=== PATIENT | female | born 1985 | race Caucasian/White ===

== ENCOUNTER 2016-04-11 17:43 | Outpatient (CLI) | payer MEDICAID ==
[2016-04-11 18:14] LABS: APPEARANCE,URINE CLEAR; BILIRUBIN,URINE NEGATIVE (NEGATIVE); GLUCOSE, URINE NEGATIVE (NEGATIVE); KETONES,URINE NEGATIVE (NEGATIVE); LEUKOCYTE ESTERASE,URINE NEGATIVE (NEGATIVE); NITRITE,URINE NEGATIVE (NEGATIVE); PROTEIN,URINE NEGATIVE (NEGATIVE); URINE SPECIFIC GRAVITY 1.016; UROBILINOGEN,URINE NEGATIVE mg/dL (<2.0)
[2016-04-11 18:29] LABS: URINE METHADONE SCREEN NEGATIVE; URINE PHENCYCLIDINE SCREEN NEGATIVE
[2016-04-11 18:32] LABS: URINE BARBITURATES SCREEN UNCONFIRMED POSITIVE
--- NOTE | 2016-04-11 19:04 | Non Stress Test Report ---
Non Stress Test Datetime Report Generated by CPN: 04/11/2016 19:03 DEMOGRAPHIC EGA NST: 32.0 INDICATION Indication for Study: Chronic Hypertension Indication for Study (NST) Other: labor check- uc's _ lost mucus plug MONITORING Monitor Explained: Monitor Explained; Test Explained; Patient Verbalized Understanding Time on Monitor: 04/11/2016 18:12 Time off Monitor: 04/11/2016 18:50 NST Duration: 38 NST INTERVENTIONS NST Interventions: PO Hydration; Reposition Patient Physician Notified NST: Dr. Marty BABY A: [id number] BABY A Movement : Present Contraction Frequency : 2-4 FHR Baseline : 130 Accelerations : 15X15 Decelerations : None Variability : Moderate 6-25bpm NST Review: Meets Criteria for Reactive NST NST Review and Verified By : Ramonita Crenshaw RN NST Results: Reactive NST REPORT Report Trigger: Send Report
--- NOTE | 2016-04-12 04:45 | L&D General Admission ---
General Admit Datetime Report Generated by CPN: 04/12/2016 04:45 INFORMATION Patient Age: 30 (03/15/2016 14:05:QS system process) EDC: 06/06/2016 00:00 (04/11/2016 17:58:Yasmin Swanson RN) : 4 (04/11/2016 17:58:Yasmin Swanson RN) Para: 4 (04/11/2016 18:35:Yasmin Swanson RN) Para: 3 (03/15/2016 16:30:Yasmin Swanson RN) Term: 2 (04/11/2016 17:58:Yasmin Swanson RN) : 1 (04/11/2016 17:58:Yasmin Swanson RN) Spontaneous Abortions: 0 (04/11/2016 17:58:Yasmin Swanson RN) Induced Abortions: 0 (04/11/2016 17:58:Yasmin Swanson RN) Livin (04/11/2016 17:58:Yasmin Swanson RN) Cesareans: 0 (04/11/2016 17:58:Yasmin Swanson RN) VBACs: 0 (04/11/2016 17:58:Yasmin Swanson RN) Ectopic: 0 (04/11/2016 17:58:Yasmin Swanson RN) Multiple Births: 0 (04/11/2016 17:58:Yasmin Swanson RN) Baby, Number in Womb: 1 (04/11/2016 18:35:Yasmin Swanson RN) Baby, Number in Womb: 1 (03/15/2016 16:30:Yasmin Swanson RN) CARE [facility] (04/11/2016 17:58:Yasmin Swanson RN) Adequate Care: Yes (04/11/2016 17:58:Yasmin Swanson RN) Height (in): 63 (04/11/2016 19:04:QS system process) Height (in): 63 (04/11/2016 18:05:QS system process) ALLERGIES Medication Allergy: Yes (04/11/2016 17:58:Yasmin Swanson RN) Medication Allergies: Penicillins/Anaphylaxis (11/01/2015); amoxicillin/SV/Anaphylaxis (11/01/2015) (03/15/2016 14:05:QS system process) COMMUNICATION Primary Language: Thai (04/11/2016 17:58:Yasmin Swanson RN) Medical Tx Preferred Language: Thai (04/11/2016 17:58:Yasmin Swanson RN) Communication Barrier(s): None (04/11/2016 17:58:Yasmin Swanson RN) DEMOGRAPHICS Address: [address] [place] [id number] (03/15/2016 14:05:QS system process) Zipcode: [address] (03/15/2016 14:05:QS system process) Home (03/15/2016 14:05:QS system process) SSN: [id number] (03/15/2016 14:05:QS system process) Next of Kin Name: JAMES CHUN (03/15/2016 14:05:QS system process) Next of Kin (03/15/2016 14:05:QS system process) Next of Kin Relationship: SPO (03/15/2016 14:05:QS system process) Date of : 1985 (03/15/2016 14:05:QS system process) Marital Status: (03/15/2016 14:05:QS system process) Sex: Female (03/15/2016 14:05:QS system process) Race: (03/15/2016 14:05:QS system process) Ethnicity: Non- or (03/15/2016 14:05:QS system process) Jew: Faith (03/15/2016 14:05:QS system process) LABS Hemoglobin: 12.4 (03/15/2016 15:13:QS system process) Hematocrit: 36.5 (03/15/2016 15:13:QS system process) MCV: 88 (03/15/2016 15:13:QS system process)
--- NOTE | 2016-04-12 04:45 | L&D Current Admission ---
Current Admit Datetime Report Generated by CPN: 04/12/2016 04:45 ADMISSION INFORMATION Chief Complaint: Contractions (Annotations: lost her mucus plug) (04/11/2016 18:11:Yasmin Swanson RN) Chief Complaint: Epigastric Pain; Headache; Visual Disturbances; Dizziness; Shortness of Breath (03/15/2016 14:50:Yasmin Swanson RN)
--- NOTE | 2016-04-12 04:45 | L&D Discharge Summary ---
OB Discharge Summary Datetime Report Generated by CPN: 04/12/2016 04:45 DISCHARGE DIAGNOSIS Diagnosis/Symptoms: False Labor; Chronic Hypertension Diagnoses/Symptoms Other: chtn; not in labor Gestation: 32.0 Number of Babies in Womb: 1 Parity: 4 DIET/ACTIVITY/RESTRICTIONS Diet: Regular Activity: Normal Activity TEACHING/INSTRUCTIONS/REFERRALS Instructions Understood: Patient Verbalized Understanding Referrals: None Educational Materials- Other: PTL _ KICK COUNTS CARE NOTES GIVEN TO PT- QUESTIONS ANSWERED. DISCHARGE INFORMATION Discharged AMA: No Discharge Date/Time: 04/11/2016 18:56 Discharged To: Home Discharge Provider Name: DR ABRAHAM Accompanied By: FOB Discharge Method: Ambulatory Condition: Stable FOLLOW UP INFORMATION Follow Up With: [facility] Follow Up On: As Scheduled Follow Up Phone Number: [facility] - Comments: PT INSTRUCTED TO KEEP APPT TOMORROW; TURN IN 24 HR URINE ON MONDAY. CLARITIN HBP FOR SINUS CONGESTION- PT VERBALIZES UNDERSTANDING.
--- NOTE | 2016-04-12 04:45 | Antepartum Discharge Summary ---
Antepartum DC Datetime Report Generated by CPN: 04/12/2016 04:45 DIET/ACTIVITY/RESTRICTIONS Diet: Regular (04/11/2016 18:35:Yasmin Swanson, RN) Activity: Normal Activity (04/11/2016 18:35:Yasmin Swanson, RN) TEACHING/INSTRUCTIONS/REFERRALS Instructions Understood: Patient Verbalized Understanding (04/11/2016 18:35:Yasmin Swanson, RN) Referrals: None (04/11/2016 18:35:Yasmin Swanson RN) Educational Materials- Other: PTL _ KICK COUNTS CARE NOTES GIVEN TO PT- QUESTIONS ANSWERED. (04/11/2016 18:35:Yasmin Swanson RN) DISCHARGE INFORMATION Discharged AMA: No (04/11/2016 18:35:Yasmin Swanson RN) Discharge Date/Time: 04/11/2016 18:56 (04/11/2016 18:35:Yasmni Swanson RN) Discharged To: Home (04/11/2016 18:35:Yasmin Swanson RN) Discharge Provider Name: DR ABRAHAM (04/11/2016 18:35:Yasmin Swanson RN) Accompanied By: BALA (04/11/2016 18:35:Yasmin Swanson RN) Discharge Method: Ambulatory (04/11/2016 18:35:Yasmin Swanson RN) Condition: Stable (04/11/2016 18:35:Yasmin Swanson RN) FOLLOW UP INFORMATION Follow Up With: [facility] (04/11/2016 18:35:Yasmin Swanson RN) Follow Up On: As Scheduled (04/11/2016 18:35:Yasmin Swanson RN) Follow Up Phone Number: [facility] - (04/11/2016 18:35:Yasmin Swanson RN)
--- NOTE | 2016-04-12 04:45 | L&D Admission Assessment ---
LD ADM ASMT Datetime Report Generated by CPN: 04/12/2016 04:45 PATIENT ASSESSMENT Assessment Type: Triage (04/11/2016 18:11:Yasmin Swanson, RN) WEIGHT Weight (lb): 227 (04/11/2016 19:04:QS system process) Weight (lb): 227 (04/11/2016 18:05:QS system process) Weight (kg): 103.2 (04/11/2016 19:04:QS system process) Weight (kg): 103.2 (04/11/2016 18:05:QS system process) BMI: 40.2 (04/11/2016 19:04:QS system process) PAIN Pain Scale: 2 (04/11/2016 18:50:Yasmin Swanson RN) Pain Scale: 3 (04/11/2016 18:11:Yasmin Swanson RN) Pain Presence: Intermittent (04/11/2016 18:50:Yasmin Swanson RN) Pain Presence: Intermittent (04/11/2016 18:11:Yasmin Swanson RN) Pain Type: Cramping (04/11/2016 18:50:Yasmin Swanson RN) Pain Type: Cramping; Pressure (04/11/2016 18:11:Yasmin Swanson RN) Pain Location: Abdomen; Back (04/11/2016 18:50:Yasmin Swanson RN) Pain Location: Abdomen; Back (04/11/2016 18:11:Yasmin Swanson RN) Pain Goal: 1 (04/11/2016 18:11:Yasmin Swanson RN) Pain Related to Contraction: Yes (04/11/2016 18:11:Yasmin Swanson RN) CONTRACTIONS Frequency (min): irreg (04/11/2016 18:50:Yasmin Swanson RN) Duration (sec): 40-60 (04/11/2016 18:50:Yasmin Swanson RN) Quality: Mild (04/11/2016 18:50:Yasmin Swanson RN) Resting Tone [place]: Relaxed (04/11/2016 18:50:Yasmin Swanson RN) Resting Tone [place]: Relaxed (04/11/2016 18:11:Yasmin Swanson RN) VAGINAL EXAM Dilatation (cm): 0.0 (04/11/2016 18:50:Yasmin Swanson RN) Effacement (%): 0 (04/11/2016 18:50:Yasmin Swanson RN) Station: -4 (04/11/2016 18:50:Yasmin Swanson RN) Membranes Status: Intact (04/11/2016 18:50:Yasmin Swanson RN) Membranes Status: Intact (04/11/2016 18:11:Yasmin Swanson RN) NEURO Level of Consciousness: Fully Conscious (04/11/2016 18:11:Yasmin Swanson RN) DTR's/Clonus: DTRs 1+ (04/11/2016 18:11:Yasmin Swanson RN) Headache: Denies (04/11/2016 18:11:Yasmin Swanson RN) Dizziness: No (04/11/2016 18:11:Yasmin Swanson RN) Blurred Vision: No (04/11/2016 18:11:Yasmin Swanson RN) Extremity Numbness/Tingling : None (04/11/2016 18:11:Yasmin Swanson RN) Extremity Movement: Full Range of Motion (04/11/2016 18:11:Yasmin Swanson RN) CARDIOVASCULAR Nailbeds: [place] (04/11/2016 18:11:Yasmin Swanson RN) Capillary Refill: Less than 3 Seconds (04/11/2016 18:11:Yasmin Swanson RN) Lower Extremities Edema: None (04/11/2016 18:11:Yasmin Swanson RN) Lower Extremities Edema Degree: None (04/11/2016 18:11:Yasmin Swanson RN) Upper Extremities Edema: None (04/11/2016 18:11:Yasmin Swanson RN) Upper Extremities Edema Degree: None (04/11/2016 18:11:Yasmin Swanson RN) Facial Edema: None (04/11/2016 18:11:Yasmin Swanson RN) RESPIRATORY Respiratory Effort: Unlabored; Regular Rhythm; Equal Expansion (04/11/2016 18:11:Yasmin Swanson RN) Cough Productivity: None (04/11/2016 18:11:Yasmin Swanson RN) GASTROINTESTINAL Nausea/Vomiting: Denies (04/11/2016 18:11:Yasmin Swanson RN) RUQ Epigastric Pain: Denies (04/11/2016 18:11:Yasmin Swanson RN) Bowel Patterns: Soft, Formed Stool (04/11/2016 18:11:Yasmin Swanson RN) Hemorrhoids: Present (04/11/2016 18:11:Yasmin Swanson RN) Diet Type: Regular diet (04/11/2016 18:11:Yasmin Swanson RN) Last Meal: 04/11/2016 11:30 (04/11/2016 18:11:Yasmin Swanson RN) GENITOURINARY Bladder: Nondistended (04/11/2016 18:11:Yasmin Swanson RN) Frequency of Urination: No (04/11/2016 18:11:Yasmin Swanson RN) Urination Burning: No (04/11/2016 18:11:Yasmin Swanson RN) Vaginal Bleeding: None (04/11/2016 18:11:Yasmin Swanson RN) Vaginal Discharge Amount: None (04/11/2016 18:11:Yasmin Swanson RN) Vaginal Discharge Color: N/A (04/11/2016 18:11:Yasmin Swanson RN) Vaginal Discharge Character: None (Annotations: mucus plug) (04/11/2016 18:11:Yasmin Swanson RN) INTEGUMENTARY Skin Color: Normal for Race (04/11/2016 18:11:Yasmin Swanson RN) Skin Temperature: Warm (04/11/2016 18:11:Yasmin Swanson RN) Skin Moisture: Dry (04/11/2016 18:11:Yasmin Swanson RN) GABRIELE SKIN ASSESSMENT [place] Scale Sensory Perception: No Impairment- Responds to verbal commands. Has no sensory deficit which would limit ability to feel or voice pain or discomfort (04/11/2016 18:11:Yasmin Swanson RN) [place] Scale Moisture: Rarely Moist- Skin is usually dry. Linen only requires changing at routine intervals (04/11/2016 18:11:Yasmin Swanson RN) [place] Scale Activity: Walks Frequently- Walks outside the room at least twice a day and inside room at least every 2 hours during the day. (04/11/2016 18:11:Yasmin Swanson RN) [place] Scale Mobility: No Limitations- Makes major and frequent changes in position without assistance (04/11/2016 18:11:Yasmin Swanson RN) [place] Scale Nutrition: Excellent- Eats most of every meal. Never refuses a meal. Usually eats a total of 4 or more servings of meat and dairy products. Occasionally eats between meals. Does not require supplementation (04/11/2016 18:11:Yasmin Swanson RN) [place] Scale Friction and Shear: No Apparent Problem- Moves in bed and in chair independently and has sufficient muscle strength to lift up completely during move. Maintains good position in bed or chair at all times (04/11/2016 18:11:Yasmin Swanson RN) [place] Scale Total: 23 (04/11/2016 18:11:QS system process) [place] Scale Risk: No Risk of Pressure Ulcer Noted at this Time (04/11/2016 18:11:QS system process) SUPPORT Family Support: Significant Other supportive, at bedside frequently (04/11/2016 18:11:Yasmin Swanson RN) Emotional State: Calm/Relaxed (04/11/2016 18:11:Yasmin Swanson RN) SAFETY Call [place] Within Reach: Yes (04/11/2016 18:11:Yasmin Swanson RN) Side Rails Up: Yes (04/11/2016 18:11:Yasmin Swanson RN) Bed Wheels Locked: Yes (04/11/2016 18:11:Yasmin Swansno RN) Arm Bands Present: Yes (04/11/2016 18:11:Yasmin Swanson RN) Isolation: [place] (04/11/2016 18:11:Yasmin Swanson RN) FALL SCREEN Fall Risk History of Falling: (0) No (04/11/2016 18:11:Yasmin Swanson RN) Fall Risk Secondary Diagnosis: (0) No (04/11/2016 18:11:Yasmin Swanson RN) Fall Risk Ambulatory Aid: (0) None/Bedrest/Wheelchair/Nurse Assist (04/11/2016 18:11:Yasmin Swanson RN) Fall Risk IV Therapy: (0) No (04/11/2016 18:11:Yasmin Swanson RN) Fall Risk Gait: (0) Normal/Bedrest/Immobile (04/11/2016 18:11:Yasmin Swanson RN) Fall Risk Mental Status: (0) Oriented to Own Ability (04/11/2016 18:11:Yasmin Swanson RN) Fall Risk Score: 0 (04/11/2016 18:11:QS system process) Fall Risk Score Definition: No Risk: No action required (04/11/2016 18:11:QS system process) RECENT TRAVEL/INFECTIOUS DISEASE Recent Exp Communicable Disease: No (04/11/2016 18:11:Yasmin Swanson RN) Cough or Fever: No (04/11/2016 18:11:Yasmin Swanson RN) Foreign Travel Past 10 Days: No (04/11/2016 18:11:Yasmin Swanson RN) Open Wounds or Sores: No (04/11/2016 18:11:Yasmin Swanson RN) Prior Antibiotic Resistance Tx: No (04/11/2016 18:11:Yasmin Swanson RN) Cultures Obtained: Not Applicable (04/11/2016 18:11:Yasmin Swanson RN) Isolation Initiated: No (04/11/2016 18:11:Yasmin Swanson RN) Pt/Family Education: Not Applicable (04/11/2016 18:11:Yasmin Swanson RN) BABY A FHR Baseline Rate (bpm) Baby A: 135 (04/11/2016 18:50:Yasmin Swanson RN) FHR Baseline Rate (bpm) Baby A: 145 (04/11/2016 18:11:Yasmin Swanson RN) Variability Baby A: Moderate 6-25 bpm (04/11/2016 18:50:Yasmin Swanson RN) Accelerations Baby A: 15X15 (04/11/2016 18:50:Yasmin Swanson RN) Decelerations Baby A: None (04/11/2016 18:50:Yasmin Swanson RN)
--- NOTE | 2016-04-12 04:45 | L&D Flow Sheet ---
LD Flowsheet Datetime Report Generated by CPN: 04/12/2016 04:45 Datetime: 04/11/2016 18:50 Vital Signs Stage of : OB Triage (Yasmin Lisha Swanson, RN) Respirations: 16 (Yasmin Lishajacinta Wallisnd, RN) Uterine Activity Monitor Mode: External (Yasmin Swanson, RN) Monitor Interventions for UA: [place] Adjusted (Yasmin Swanson, RN) Frequency (min): irreg (Yasmin Swanson, RN) Quality: Mild (Yasmin Swanson, RN) Duration (sec): 40-60 (Yasmin Swanson, RN) Resting Tone (Palpate): Relaxed (Yasmin Swanson, RN) Assessment A Monitor Mode: External US (Yasmin Swanson, RN) Monitor Interventions for FHR: Ultrasound Adjusted (Yasmin Swanson, RN) FHR Baseline Rate : 135 (Yasmin Swanson, RN) FHR Baseline Changes: No Baseline Change (Yasmin Swanson, RN) Variability: Moderate 6-25 bpm (Yasmin Husain Roulund, RN) Accelerations: 15X15 (Yasmin Dixonlund, RN) Decelerations: None (Yasmin Swanson, RN) Pain Pain Scale: 2 (Yasmin Swanson RN) Pain Presence: Intermittent (Yasmin Swanson RN) Pain Type: Cramping (Yasmin Swanson RN) Pain Location: Abdomen; Back (Yasmin Swanson RN) Pain Relief Measures: Comfort Measures (Yasmin Swanson RN) Pain Coping: Talking Through Contractions (Yasmin Swanson RN) Vaginal Exam Dilatation (cm): 0.0 (Yasmin Swanson RN) Effacement (%): 0 (Yasmin Swanson RN) Station: -4 (Yasmin Swanson RN) Exam by: ELEANOR SWANSON RN (Yasmin Swanson, RONI) Membrane Status: Intact (Yasmin Swanson RN) Vaginal Bleeding: None (Yasmin Swanson RN) Cervix, Consistency: Soft (Yasmin Swanson RN) Cervix, Position: Posterior (Yasmin Swanson RN) Procedures: Sterile [place]culum Exam (Yasmin Swanson, RONI) Patient Position/Activity: Left Tilt; Semi-Fowlers (Yasmin Swanson, RONI) Comfort Measures: Family Support (Yasmin Swanson RN) I/O Interventions: Up to BR (Yasmin Swanson RN) Teaching Instructional Method: Verbal; Written; Patient Instructed; Family/Support Person Instructed; Verbalized Understanding (Yasmin Swanson RN) Plan of Care: Labor (Yasmin Swanson RN) Pain Management: Comfort Measures (Yasmin Swanson RN) PTL/PROM: Hydration (Yasmin Swanson RN) Related: Common Discomforts of ; Maternal Physical Changes; Maternal Emotional Changes; Nutrition; Hydration; Activity and Rest (Yasmin Swanson RN) Communication Communication: RN at Bedside; RN Reviewed Strip; Provider Orders Received; Report Given to @ DR ABRAHAM @ [id number] (Yasmin Swanson RN) Notification Reason: Status Update; Status; Labor Status; Uterine Activity; Pain (Yasmin Swanson RN) Communication Comments: D/C ORDERS IF NEG SVE; D/C AMBULATORY IN STABLE CONDITION W/O C/O ACCOMPANIED BY FOB. (Yasmin Swanson RN) LaborFlag: OB Triage (QS system process) Datetime: 04/11/2016 18:43 NBP Sys/[place]/Mean (mmHg): 136 (QS system process) : 84 (QS system process) : 104 (QS system process) Pulse: 100 (QS system process) LaborFlag: OB Triage (QS system process) Datetime: 04/11/2016 18:28 NBP Sys/[place]/Mean (mmHg): 132 (QS system process) : 79 (QS system process) : 101 (QS system process) Pulse: 96 (QS system process) LaborFlag: OB Triage (QS system process) Datetime: 04/11/2016 18:11 Vital Signs Stage of : OB Triage (Yasmin Castañedajacinta Swanson, RN) NBP Sys/[place]/Mean (mmHg): 157 (QS system process) : 92 (QS system process) : 115 (QS system process) Pulse: 107 (QS system process) Uterine Activity Monitor Mode: External (Yasmin Lisha Swanson, RN) Monitor Interventions for UA: [place] Adjusted (Yasmin Castañedajacinta Wallisnd, RN) Resting Tone (Palpate): Relaxed (Yasmin Husain Roulund, RN) Assessment A Monitor Mode: External US (Yasmin Swanson, RONI) Monitor Interventions for FHR: Ultrasound Adjusted (Yasmin Swanson, RN) FHR Baseline Rate : 145 (Yasmin Wallisgina, RN) Pain Pain Scale: 3 (Yasmin Swanson RN) Pain Presence: Intermittent (Yasmin Swanson RN) Pain Type: Cramping; Pressure (Yasmin Swanson, RONI) Pain Location: Abdomen; Back (Yasmin Swanson, RONI) Pain Goal: 1 (Yasmin Swanson RN) Pain Relief Measures: Comfort Measures (Yasmin Swanson RN) Pain Coping: Talking Through Contractions (Yasmin Swanson, RONI) Membrane Status: Intact (Yasmin Swanson, RONI) Vaginal Bleeding: None (Yasmin Swanson, RONI) Maternal Assessment Level of Consciousness: Fully Conscious (Yasmin Swanson RN) DTR's/Clonus: DTRs 1+ (Yasmin Swanson RN) Headache: Denies (Yasmin Swanson RN) Nausea/Vomiting: Denies (Yasmin Swanson RN) RUQ Epigastric Pain: Denies (Yasmin Swanson RN) Patient Care Oxygen Method: Room Air (Yasmin Swanson RN) Patient Position/Activity: Left Tilt; Semi-Fowlers (Yasmin Swanson RN) Comfort Measures: Family Support (Yasmin Swanson RN) I/O Interventions: Popsicle; Clear Liquids Given; Up to BR (Yasmin Swanson RN) Teaching Instructional Method: Verbal; Patient Instructed; Family/Support Person Instructed; Verbalized Understanding (Yasmin Swanson RN) Plan of Care: Plan of Care Discussed (Yasmin Swanson RN) Unit Routine: [place] to Room; Call [place]; Bed; Phone/Cell Phone Use; Unit Personnel; Handwashing; Monitoring; Safety/Fall Risk Prevention; Diet/Nutrition Services; Bathroom Privileges (Yasmin Swanson RN) Pain Management: Pain Scale/Goals; Comfort Measures (Yasmin Swanson RN) Related: Common Discomforts of ; Maternal Physical Changes; Maternal Emotional Changes; Nutrition; Hydration; Activity and Rest (Yasmin Swanson RN) Communication Communication: RN at Bedside; RN Reviewed Strip (Yasmin Swanson RN) LaborFlag: OB Triage (QS system process)
== END 2016-04-11 18:56 | disposition home or self-care (01) ==
LOC: LC 17:43
PROVIDERS: ATTEND Obstetrics & Gynecology
PROC: 4A1HXCZ Monitoring of Products of Conception, Cardiac Rate, External Approach (ICD-10-PCS; principal; 2016-04-11)
DX: O10.913 Unspecified pre-existing hypertension complicating pregnancy, third trimester (principal); Z3A.32 32 weeks gestation of pregnancy
CPT/HCPCS: 59025; 80307; 81001

== ENCOUNTER 2016-05-05 01:11 | Outpatient (CLI) | payer MEDICAID ==
[2016-05-05 01:51] LABS: APPEARANCE,URINE SLIGHTLY-CLOUDY; BILIRUBIN,URINE NEGATIVE (NEGATIVE); GLUCOSE, URINE NEGATIVE (NEGATIVE); KETONES,URINE NEGATIVE (NEGATIVE); LEUKOCYTE ESTERASE,URINE NEGATIVE (NEGATIVE); NITRITE,URINE NEGATIVE (NEGATIVE); PROTEIN,URINE NEGATIVE (NEGATIVE); URINE SPECIFIC GRAVITY 1.008; UROBILINOGEN,URINE NEGATIVE mg/dL (<2.0)
[2016-05-05 01:53] LABS: AMNISURE (ROM) NEGATIVE (NEGATIVE)
[2016-05-05 02:18] LABS: URINE METHADONE SCREEN NEGATIVE; URINE OPIATES LOW NEGATIVE; URINE PHENCYCLIDINE SCREEN NEGATIVE
[2016-05-05 02:22] LABS: URINE BARBITURATES SCREEN UNCONFIRMED POSITIVE
[2016-05-05] MEDS ORDERED: HYDROXYZINE PAMOATE 50 MG CAPSULE ONE (03:25)
--- NOTE | 2016-05-05 03:46 | Non Stress Test Report ---
Non Stress Test Datetime Report Generated by CPN: 05/05/2016 03:46 DEMOGRAPHIC EGA NST: 35.3 INDICATION Indication for Study: Ordered by Provider; Other Indication for Study (NST) Other: LC URINE RESULTS Urine Protein, NST: Negative Urine Ketones - NST: Negative Urine Glucose - NST: Negative Urine Blood - NST: Negative MONITORING Monitor Explained: Monitor Explained; Test Explained; Patient Verbalized Understanding Time on Monitor: 05/05/2016 01:30 Time off Monitor: 05/05/2016 02:44 NST Duration: 74 NST INTERVENTIONS Physician Notified NST: Dr Ferguson BABY A: [id number] BABY A Movement : Present Contraction Frequency : 2-10 FHR Baseline : 135 Accelerations : 15X15 Decelerations : None Variability : Moderate 6-25bpm NST Review: Meets Criteria for Reactive NST NST Review and Verified By : R Luis, RNC NST Results: Reactive NST COMMENTS NST Comments: see flowsheet for urine results and VS NST REPORT Report Trigger: Send Report
--- NOTE | 2016-05-05 04:46 | L&D Admission Assessment ---
LD ADM ASMT Datetime Report Generated by CPN: 05/05/2016 04:45 PATIENT ASSESSMENT Assessment Type: Triage (05/05/2016 01:30:Wilda Scott, RN) WEIGHT Weight (lb): 229 (05/05/2016 01:52:QS system process) Weight (kg): 104.1 (05/05/2016 01:52:QS system process) BMI: 40.6 (05/05/2016 01:52:QS system process) PAIN Pain Scale: 4 (05/05/2016 01:30:Wilda Scott, RN) Pain Presence: Intermittent (05/05/2016 01:30:Wilda Scott, RN) Pain Type: Contraction (05/05/2016 01:30:Wilda Scott, RN) Pain Location: Abdomen; Back (05/05/2016 01:30:Wilda Scott, RN) Pain Goal: 2 (05/05/2016 01:30:Wilda Scott, RN) Pain Related to Contraction: Yes (05/05/2016 01:30:Wilda Scott, RN) CONTRACTIONS Frequency (min): 2-6 (05/05/2016 02:30:Wilda Scott, RN) Frequency (min): 4-10 (05/05/2016 02:00:Wilda Scott, RN) Frequency (min): Q6 per pt (05/05/2016 01:30:Wilda Scott, RN) Duration (sec): 50-120 (05/05/2016 02:30:Wilda Scott, RN) Duration (sec): 60-150 (05/05/2016 02:00:Wilda Chavez RN) Quality: Mild (05/05/2016 02:30:Wilda Chavez RN) Quality: Mild (05/05/2016 02:00:Wilda Chavez RN) Resting Tone [place]: Relaxed (05/05/2016 02:30:Wilda Chavez RN) Resting Tone [place]: Relaxed (05/05/2016 02:00:Wilda Chavez RN) Contraction Comments: Unable to accurately assess (05/05/2016 02:44:Wilda Chavez RN) VAGINAL EXAM Dilatation (cm): 2.0 (05/05/2016 03:25:Wilda Chavez RN) Dilatation (cm): 2.0 (05/05/2016 01:30:Wilda Chavez RN) Effacement (%): 30 (05/05/2016 03:25:Wilda Chavez RN) Effacement (%): 30 (05/05/2016 01:30:Wilda Chavez RN) Station: -1 (05/05/2016 03:25:Wilda Chavez RN) Station: -2 (05/05/2016 01:30:Wilda Chavez RN) ROTH'S SCORE Roth's Score Dilatation (cm): 1-2 cm (05/05/2016 01:30:Wilda Chavez RN) Roth's Score Effacement (%): 0-30_ effaced (05/05/2016 01:30:Wilda Chavez RN) Roth's Score Station: minus 2 (05/05/2016 01:30:Wilda Chavez RN) Roth's Score Consistency: Medium (05/05/2016 01:30:Wilda Chavez RN) Roth's Score Position: Anterior (05/05/2016 01:30:Wilda Chavez RN) Total Roth's Score: 5 (05/05/2016 01:30:QS system process) Roth's Score Text: 5-8 = Small percentage of induction failure (05/05/2016 01:30:QS system process) NEURO Level of Consciousness: Fully Conscious (05/05/2016 01:30:Wilda Chavez RN) DTR's/Clonus: DTRs 2+; No Clonus (05/05/2016 01:30:Wilda Chavez RN) Headache: Generalized (05/05/2016 01:30:Wilda Chavez RN) Dizziness: No (05/05/2016 01:30:Wilda Chavez RN) Blurred Vision: No (Annotations: Hx of visual disturbance today, denies right now ) (05/05/2016 01:30:Wilda Chavez RN) Extremity Numbness/Tingling : None (05/05/2016 01:30:Wilda Chavez RN) Extremity Movement: Full Range of Motion (05/05/2016 01:30:Wilda Chavez RN) CARDIOVASCULAR Heart Rhythm: Irregular-Annotate (05/05/2016 01:30:Wilda Chavez RN) Nailbeds: [place] (05/05/2016 01:30:Wilda Chavez RN) Capillary Refill: Less than 3 Seconds (05/05/2016 01:30:Wilda Chavez RN) Lower Extremities Edema: None (05/05/2016 01:30:Wilda Chavez RN) Lower Extremities Edema Degree: None (05/05/2016 01:30:Wilda Chavez RN) Upper Extremities Edema: Bilateral Upper Extremities (05/05/2016 01:30:Wilda Chavez RN) Upper Extremities Edema Degree: 1+ (05/05/2016 01:30:Wilda Chavez RN) Facial Edema: None (05/05/2016 01:30:Wilda Chavez RN) Homa's Sign Left Leg: Negative (05/05/2016 01:30:Wilda Chavez RN) Homa's Sign Right Leg: Negative (05/05/2016 01:30:Wilda Chavez RN) DVT RISK ASSESSMENT DVT Risk Age: Age less than 41 years (05/05/2016 01:30:Wilda Chavez RN) DVT Risk BMI: BMI 41 to 50 (05/05/2016 01:30:Wilda Chavez RN) DVT Risk Surgery: None Applicable (05/05/2016 01:30:Wilda Chavez RN) DVT Risk Other: Women Only- or (<1 month) (05/05/2016 01:30:Wilda Chavez RN) DVT Risk Total: 3 (05/05/2016 01:30:QS system process) DVT Risk Text: High Risk (20-40%)- Consider stockings, compresssion device, pharmacological therapy per hospital policy (05/05/2016 01:30:QS system process) RESPIRATORY Respiratory Effort: Unlabored; Regular Rhythm; Equal Expansion (05/05/2016 01:30:Wilda Chavez RN) Breath Sounds, Left: Clear and Equal (05/05/2016 01:30:Wilda Chavez RN) Breath Sounds, Right: Clear and Equal (05/05/2016 01:30:Wilda Scott RN) Cough Productivity: None (05/05/2016 01:30:Wilda Scott, RN) GASTROINTESTINAL Nausea/Vomiting: Denies (05/05/2016 01:30:Wilda Chavez RN) Bowel Sounds: Normoactive; All Quadrants (05/05/2016 01:30:Wilda Scott, RN) RUQ Epigastric Pain: Denies (05/05/2016 01:30:Wilda Scott, RN) GENITOURINARY Bladder: Nondistended (05/05/2016 01:30:Wilda Chavez RN) Frequency of Urination: No (05/05/2016 01:30:Wilda Chavez RN) Urination Burning: No (05/05/2016 01:30:Wilda Chavez RN) CVA Tenderness: No (05/05/2016 01:30:Wilda Chavez RN) Vaginal Bleeding: None (05/05/2016 01:30:Wilda Chavez RN) Vaginal Discharge Amount: None (05/05/2016 01:30:Wilda Chavez RN) Vaginal Discharge Color: N/A (05/05/2016 01:30:Wilda Scott, RONI) INTEGUMENTARY Skin Color: Normal for Race (05/05/2016 01:30:Wilda Chavez RN) Skin Temperature: Warm (05/05/2016 01:30:Wilda Chavez RN) Skin Moisture: Dry (05/05/2016 01:30:Wilda Chavez RN) PUSHPA SKIN ASSESSMENT Pushpa Scale Sensory Perception: No Impairment- Responds to verbal commands. Has no sensory deficit which would limit ability to feel or voice pain or discomfort (05/05/2016 01:30:Wilda Chavez RN) Pushpa Scale Moisture: Rarely Moist- Skin is usually dry. Linen only requires changing at routine intervals (05/05/2016 01:30:Wilda Chavez RN) Pushpa Scale Activity: Walks Frequently- Walks outside the room at least twice a day and inside room at least every 2 hours during the day. (05/05/2016 01:30:Wilda Chavez RN) Pushpa Scale Mobility: No Limitations- Makes major and frequent changes in position without assistance (05/05/2016 01:30:Wilda Chavez RN) Pushpa Scale Nutrition: Excellent- Eats most of every meal. Never refuses a meal. Usually eats a total of 4 or more servings of meat and dairy products. Occasionally eats between meals. Does not require supplementation (05/05/2016 01:30:Wilda Chavez RN) Pushpa Scale Friction and Shear: No Apparent Problem- Moves in bed and in chair independently and has sufficient muscle strength to lift up completely during move. Maintains good position in bed or chair at all times (05/05/2016 01:30:Wilda Chavez RN) Pushpa Scale Total: 23 (05/05/2016 01:30:QS system process) Pushpa Scale Risk: No Risk of Pressure Ulcer Noted at this Time (05/05/2016 01:30:QS system process) SUPPORT Family Support: Significant Other supportive, at bedside frequently (05/05/2016 01:30:Wilda Chavez RN) SAFETY Call Giles Within Reach: Yes (05/05/2016 01:30:Wilda Chavez RN) Side Rails Up: Yes (05/05/2016 01:30:Wilda Chavez RN) Bed Wheels Locked: Yes (05/05/2016 01:30:Wilda Chavez RN) Arm Bands Present: Yes (05/05/2016 01:30:Wilda Chavez RN) FALL SCREEN Fall Risk History of Falling: (0) No (05/05/2016 01:30:Wilda Chavez RN) Fall Risk Secondary Diagnosis: (0) No (05/05/2016 01:30:Wilda Chavez RN) Fall Risk Ambulatory Aid: (0) None/Bedrest/Wheelchair/Nurse Assist (05/05/2016 01:30:Wilda Chavez RN) Fall Risk IV Therapy: (0) No (05/05/2016 01:30:Wilda Chavez RN) Fall Risk Gait: (0) Normal/Bedrest/Immobile (05/05/2016 01:30:Wilda Chavez RN) Fall Risk Mental Status: (0) Oriented to Own Ability (05/05/2016 01:30:Wilda Chavez RN) Fall Risk Score: 0 (05/05/2016 01:30:QS system process) Fall Risk Score Definition: No Risk: No action required (05/05/2016 01:30:QS system process) RECENT TRAVEL/INFECTIOUS DISEASE Recent Exp Communicable Disease: No (05/05/2016 01:30:Wilda Chavez RN) Cough or Fever: No (05/05/2016 01:30:Wilda Chavez RN) Foreign Travel Past 10 Days: No (05/05/2016 01:30:Wilda Chavez RN) Open Wounds or Sores: No (05/05/2016 01:30:Wilda Chavez RN) Prior Antibiotic Resistance Tx: No (05/05/2016 01:30:Wilda Chavez RN) Cultures Obtained: Not Applicable (05/05/2016 01:30:Wilda Chavez RN) Isolation Initiated: No (05/05/2016 01:30:Wilda Chavez RN) Pt/Family Education: Not Applicable (05/05/2016 01:30:Wilda Chavez RN) BABY A FHR Baseline Rate (bpm) Baby A: 135 (05/05/2016 02:44:Wilda Chavez RN) FHR Baseline Rate (bpm) Baby A: 130 (05/05/2016 02:30:Wilda Chavez RN) FHR Baseline Rate (bpm) Baby A: 135 (05/05/2016 02:00:Wilda Chavez RN) Variability Baby A: Moderate 6-25 bpm (05/05/2016 02:44:Wilda Chavez RN) Variability Baby A: Moderate 6-25 bpm (05/05/2016 02:30:Wilda Chavez RN) Variability Baby A: Moderate 6-25 bpm (05/05/2016 02:00:Wilda Chavez RN) Accelerations Baby A: 10X10 (05/05/2016 02:44:Wilda Chavez RN) Accelerations Baby A: 15X15 (05/05/2016 02:30:Wilda Chavez RN) Accelerations Baby A: 15X15 (05/05/2016 02:00:Wilda Chavez RN) Decelerations Baby A: None (05/05/2016 02:44:Wilda Chavez RN) Decelerations Baby A: None (05/05/2016 02:30:Wilda Chavez RN) Decelerations Baby A: None (05/05/2016 02:00:Wilda Chavez RN)
--- NOTE | 2016-05-05 04:46 | L&D Flow Sheet ---
LD Flowsheet Datetime Report Generated by CPN: 05/05/2016 04:45 Datetime: 05/05/2016 03:32 Additional Nursing Comments: Pt stable, ambulatory, discharged from unit. See delivery summary (Wilda Scott, RN) Datetime: 05/05/2016 03:31 Medications Medication Comments: vistaril 50 mg PO (Wilda Scott, RN) Teaching Instructional Method: Verbal; Written; Patient Instructed; Family/Support Person Instructed; Verbalized Understanding (Wilda Scott, RN) Teaching Comments: Term labor care notes discussed. No questions from pt or at this time (Wilda Scott, RN) Datetime: 05/05/2016 03:25 Vaginal Exam Dilatation (cm): 2.0 (Wilda Scott, RN) Effacement (%): 30 (Wilda Scott, RN) Station: -1 (Wilda Scott, RN) Exam by: K Scott RN (Wilda Scott, RN) Datetime: 05/05/2016 02:44 Contraction Comments: Unable to accurately assess (Wilda Scott, RN) Assessment A Monitor Mode: External US (Wilda Scott, RN) FHR Baseline Rate : 135 (Wilda Scott, RN) Variability: Moderate 6-25 bpm (Wilda Scott, RN) Accelerations: 10X10 (Wilda Scott, RN) Decelerations: None (Wilda Scott, RN) Comments: monitors discontinued for pt to ambulate unit for 30 minutes (Wilda Scott, RN) Datetime: 05/05/2016 02:37 Vital Signs NBP Sys/Maame/Mean (mmHg): 143 (QS system process) : 78 (QS system process) : 105 (QS system process) Pulse: 93 (QS system process) LaborFlag: OB Triage (QS system process) Datetime: 05/05/2016 02:30 Uterine Activity Monitor Mode: External; Palpation (Wilda Scott, RN) Frequency (min): 2-6 (Wilda Scott, RN) Quality: Mild (Wilda Scott, RN) Duration (sec): 50-120 (Wilda Scott, RN) Resting Tone (Palpate): Relaxed (Wilda Scott, RN) Assessment A Monitor Mode: External US (Wilda Scott, RN) FHR Baseline Rate : 130 (Wilda Scott, RN) Variability: Moderate 6-25 bpm (Wilda Scott, RN) Accelerations: 15X15 (Wilda Scott, RN) Decelerations: None (Wilda Scott, RN) Datetime: 05/05/2016 02:29 I/O Interventions: Up to BR (Wilda Scott, RN) Datetime: 05/05/2016 02:21 Vital Signs NBP Sys/Maame/Mean (mmHg): 138 (QS system process) : 75 (QS system process) : 102 (QS system process) Pulse: 99 (QS system process) LaborFlag: OB Triage (QS system process) Datetime: 05/05/2016 02:06 Vital Signs NBP Sys/Maame/Mean (mmHg): 132 (QS system process) : 79 (QS system process) : 102 (QS system process) Pulse: 88 (QS system process) LaborFlag: OB Triage (QS system process) Datetime: 05/05/2016 02:02 Communication Communication: Provider Orders Received; Report Given to @ Dr Ferguson (Wilda Chavez RN) Communication Comments: Call placed to Dr Ferguson, report given re: pt presence, hx, complaints, NST, negative amnisure and SVE. Plan to repeat SVE _0300. If SVE unchanged, may d/c pt to home with vistaril 50 mg PO (Wilda Chavez, RONI) Datetime: 05/05/2016 02:00 Uterine Activity Monitor Mode: External; Palpation (Wilda Chavez, RN) Frequency (min): 4-10 (Wilda Chavez RN) Quality: Mild (Wilda Chavez, RN) Duration (sec): 60-150 (Wilda Chavez RN) Resting Tone (Palpate): Relaxed (Wilda Chavez, RN) Assessment A Monitor Mode: External US (Wilda Scott, RN) FHR Baseline Rate : 135 (Wilda Scott, RN) Variability: Moderate 6-25 bpm (Wilda Scott, RN) Accelerations: 15X15 (Wilda Scott, RN) Decelerations: None (Wilda Scott, RN) Datetime: 05/05/2016 01:52 Vital Signs NBP Sys/Maame/Mean (mmHg): 136 (QS system process) : 89 (QS system process) : 107 (QS system process) Pulse: 97 (QS system process) LaborFlag: OB Triage (QS system process) Datetime: 05/05/2016 01:35 Vital Signs NBP Sys/Maame/Mean (mmHg): 149 (QS system process) : 88 (QS system process) : 113 (QS system process) Pulse: 95 (QS system process) Respirations: 17 (Wilda Chavez RN) Temperature (F): 97.8 (Wilda Chavez RN) Temperature (C): 36.6 (QS system process) Temperature Route: Oral (Wilda Chavez RN) LaborFlag: OB Triage (QS system process) Datetime: 05/05/2016 01:30 Frequency (min): Q6 per pt (Wilda Chavez, RONI) Pain Pain Scale: 4 (Wilda Chavez RN) Pain Presence: Intermittent (Wilda Chavez RN) Pain Type: Contraction (Wilda Chavez RN) Pain Location: Abdomen; Back (Wilda Chavez RN) Pain Goal: 2 (Wilda Chavez RN) Pain Relief Measures: Comfort Measures (Wilda Chavez RN) Pain Coping: Talking Through Contractions; Breathing Through Contractions (Wilda Chavez RN) Vaginal Exam Dilatation (cm): 2.0 (Wilda Chavez RN) Effacement (%): 30 (Wilda Chavez RN) Station: -2 (Wilda Chavez RN) Exam by: Ree Chavez RN (Wilda Chavez RN) Vaginal Bleeding: None (Wilda Chavez RN) Cervix, Consistency: Moderate (Wilda Chavez RN) Cervix, Position: Anterior (Wilda Scott, RN) Levi's Score Dilatation (cm): 1-2 cm (Wilda Scott, RN) Effacement: 0-30_ effaced (Wilda Scott, RN) Station: minus 2 (Wilda Scott, RN) Consistency: Medium (Wilda Scott, RN) Position: Anterior (Wilda Scott, RN) Total Levi's Score: 5 (QS system process) : 5-8 = Small percentage of induction failure (QS system process) Maternal Assessment Level of Consciousness: Fully Conscious (Wilda Scott, RN) DTR's/Clonus: DTRs 2+; No Clonus (Wilda Scott, RN) Headache: Generalized (Wilda Scott, RN) Breath Sounds, Left: Clear and Equal (Wilda Scott, RN) Breath Sounds, Right: Clear and Equal (Wilda Scott, RN) Nausea/Vomiting: Denies (Wilda Scott, RN) RUQ Epigastric Pain: Denies (Wilda Scott, RN) Patient Care Patient Position/Activity: Right Tilt (Wilda Chavez RN) Comfort Measures: Family Support (Wilda Chavez RN) I/O Interventions: Ice Chips Given; Popsicle; Clear Liquids Given (Wilda Chavez RN) Teaching Instructional Method: Verbal; Patient Instructed; Family/Support Person Instructed; Verbalized Understanding (Wilda Chavez RN) Plan of Care: Plan of Care Discussed (Wilda Chavez RN) Unit Routine: [place] to Room; Call Giles (Wilda Chavez RN) Labor/Induction: Labor Stages (Wilda Chavez RN) Pain Management: PRN Medications; Pain Scale/Goals; Comfort Measures (iWlda Chavez RN) LaborFlag: OB Triage (QS system process)
--- NOTE | 2016-05-05 04:46 | L&D Current Admission ---
Current Admit Datetime Report Generated by CPN: 05/05/2016 04:45 ADMISSION INFORMATION Chief Complaint: Contractions (05/05/2016 01:30:NANCY Araujo
--- NOTE | 2016-05-05 04:46 | L&D General Admission ---
General Admit Datetime Report Generated by CPN: 05/05/2016 04:45 INFORMATION Para: 3 (05/05/2016 03:32:Wilda Scott, RN) Baby, Number in Womb: 1 (05/05/2016 03:32:Wilda Scott, RN) CARE Height (in): 63 (05/05/2016 01:52:QS system process) ALLERGIES Medication Allergies: Penicillins/Anaphylaxis (05/05/2016); amoxicillin/SV/Anaphylaxis (05/05/2016) (05/05/2016 01:52:QS system process)
--- NOTE | 2016-05-05 04:46 | Antepartum Discharge Summary ---
Antepartum DC Datetime Report Generated by CPN: 05/05/2016 04:45 DIET/ACTIVITY/RESTRICTIONS Diet: Regular (05/05/2016 03:32:Wilda Scott, RN) Activity: Normal Activity (05/05/2016 03:32:Wilda Scott, RN) TEACHING/INSTRUCTIONS/REFERRALS Instructions Given To: pt, (05/05/2016 03:32:Wilda Scott, RN) Instructions Understood: Patient Verbalized Understanding; Support Person Verbalized Understanding (05/05/2016 03:32:Wilda Chavez RN) Educational Materials- Other: term labor care notes (05/05/2016 03:32:Wilda Chavez RN) DISCHARGE INFORMATION Discharged AMA: No (05/05/2016 03:32:Wilda Chavez RN) Discharge Date/Time: 05/05/2016 03:32 (05/05/2016 03:32:Wilda Chavez RN) Discharged To: Home (05/05/2016 03:32:Wilda Chavez RN) Discharge Provider Name: Dr Ferguson (05/05/2016 03:32:Wilda Chavez RN) Accompanied By: (05/05/2016 03:32:Wilda Chavez RN) Discharge Method: Ambulatory (05/05/2016 03:32:Wilda Chavez RN) Condition: Stable (05/05/2016 03:32:Wilda Chavez RN) FOLLOW UP INFORMATION Follow Up With: [facility] (05/05/2016 03:32:Wilda Chavez RN) Follow Up On: Tomorrow (05/05/2016 03:32:Wilda Chavez RN) Follow Up Phone Number: [facility] - (05/05/2016 03:32:Wilda Chavez RN)
--- NOTE | 2016-05-05 04:46 | L&D Discharge Summary ---
OB Discharge Summary Datetime Report Generated by CPN: 05/05/2016 04:45 DISCHARGE DIAGNOSIS Diagnosis/Symptoms: False Labor Diagnoses/Symptoms Other: chtn; not in labor Treatment/Procedures Other: SVE Gestation: 35.2 Number of Babies in Womb: 1 Parity: 3 DIET/ACTIVITY/RESTRICTIONS Diet: Regular Activity: Normal Activity TEACHING/INSTRUCTIONS/REFERRALS Instructions Given To: pt, Instructions Understood: Patient Verbalized Understanding; Support Person Verbalized Understanding Referrals: None Educational Materials- Other: term labor care notes DISCHARGE INFORMATION Discharged AMA: No Discharge Date/Time: 05/05/2016 03:32 Discharged To: Home Discharge Provider Name: Marty Accompanied By: Discharge Method: Ambulatory Condition: Stable FOLLOW UP INFORMATION Follow Up With: [facility] Follow Up On: Tomorrow Follow Up Phone Number: [facility] - Comments: PT INSTRUCTED TO KEEP APPT TOMORROW; TURN IN 24 HR URINE ON MONDAY. CLARITIN HBP FOR SINUS CONGESTION- PT VERBALIZES UNDERSTANDING.
== END 2016-05-05 03:31 | disposition home or self-care (01) ==
LOC: LC 01:11
PROVIDERS: ATTEND Obstetrics & Gynecology
PROC: 4A1HXCZ Monitoring of Products of Conception, Cardiac Rate, External Approach (ICD-10-PCS; principal; 2016-05-05)
DX: Z34.93 Encounter for supervision of normal pregnancy, unspecified, third trimester (principal); Z3A.35 35 weeks gestation of pregnancy
CPT/HCPCS: 84112; 81001; 80307; 59025; J3490

== ENCOUNTER 2016-05-06 11:01 | Outpatient (CLI) | payer MEDICAID ==
[2016-05-06 11:43] LABS: APPEARANCE,URINE SLIGHTLY-CLOUDY; BILIRUBIN,URINE NEGATIVE (NEGATIVE); GLUCOSE, URINE NEGATIVE (NEGATIVE); KETONES,URINE TRACE mg/dL (NEGATIVE); LEUKOCYTE ESTERASE,URINE NEGATIVE (NEGATIVE); NITRITE,URINE NEGATIVE (NEGATIVE); PROTEIN,URINE NEGATIVE (NEGATIVE); URINE SPECIFIC GRAVITY 1.017; UROBILINOGEN,URINE NEGATIVE mg/dL (<2.0)
[2016-05-06 11:58] LABS: AMNISURE (ROM) NEGATIVE (NEGATIVE)
--- NOTE | 2016-05-06 12:01 | L&D Flow Sheet ---
LD Flowsheet Datetime Report Generated by CPN: 05/06/2016 12:00 Datetime: 05/06/2016 11:54 NBP Sys/Maame/Mean (mmHg): 134 (QS system process) : 89 (QS system process) : 107 (QS system process) Pulse: 96 (QS system process) LaborFlag: OB Triage (QS system process) Datetime: 05/06/2016 11:44 Pain Scale: 3 (Maryanne Webster, RN) Pain Presence: Intermittent (Maryanne Darin, RN) Pain Type: Contraction (Maryanne Webster RN) Pain Location: Abdomen (Maryanne Webster RN) Pain Relief Measures: Comfort Measures (Maryanne Webster RN) Pain Coping: Talking Through Contractions (Maryanne Webster RN) Pain Assessment Comments: pt on the phone talking to a friend (Maryanne Webster RN) Vaginal Bleeding: none seen by RN on amnisure, glove or kris pad (Maryanne Webster RN) Level of Consciousness: Fully Conscious (Maryanne Webster RN) Headache: Denies (Maryanne Webster RN) Breath Sounds, Left: Clear and Equal (Maryanne Webster RN) Breath Sounds, Right: Clear and Equal (Maryanne Webster RN) Nausea/Vomiting: Denies (Maryanne Webster RN) RUQ Epigastric Pain: Denies (Maryanne Webster RN) LaborFlag: OB Triage (QS system process) Datetime: 05/06/2016 11:43 Patient Position/Activity: Left Tilt (Maryanne Webster RN) Datetime: 05/06/2016 11:42 Membrane Comments: Amnisure collected and sent (Maryanne Webster RN) Datetime: 05/06/2016 11:41 I/O Interventions: Up to BR (Maryanne Webster RN) Datetime: 05/06/2016 11:23 NBP Sys/Maame/Mean (mmHg): 129 (QS system process) : 67 (QS system process) : 95 (QS system process) Pulse: 106 (QS system process) Dilatation (cm): 2.0 (Maryanne Webster RN) Effacement (%): 30 (Maryanne Webster RN) Station: -2 (Maryanne Wesbter RN) Exam by: Manpreet Webster RN (Maryanne Webster RN) Vaginal Exam Comments: no blood noted on glove after SVE (Maryanne Webster RN) LaborFlag: OB Triage (QS system process)
[2016-05-06 12:03] LABS: URINE METHADONE SCREEN NEGATIVE; URINE OPIATES LOW NEGATIVE; URINE PHENCYCLIDINE SCREEN NEGATIVE
[2016-05-06 12:12] LABS: URINE BARBITURATES SCREEN UNCONFIRMED POSITIVE
--- NOTE | 2016-05-06 12:29 | Non Stress Test Report ---
Non Stress Test Datetime Report Generated by CPN: 05/06/2016 12:29 DEMOGRAPHIC EGA NST: 35.3 INDICATION Indication for Study: Ordered by Provider Indication for Study (NST) Other: LC MONITORING Monitor Explained: Monitor Explained; Test Explained; Patient Verbalized Understanding Time on Monitor: 05/05/2016 11:22 Time off Monitor: 05/06/2016 12:08 NST Duration: 1486 NST INTERVENTIONS NST Interventions: PO Hydration Physician Notified NST: Dr. Garza BABY A Movement : Present Contraction Frequency : irreg FHR Baseline : 145 Accelerations : 15X15 Decelerations : None Variability : Moderate 6-25bpm NST Review: Meets Criteria for Reactive NST NST Review and Verified By : RONI Arcos Results: Reactive NST REPORT Report Trigger: Send Report
[2016-05-06] MEDS ORDERED: MAG HYDROX/AL HYDROX/SIMETH SUSP 30 ML UDCUP PO ONE (16:29)
== END 2016-05-06 12:19 | disposition home or self-care (01) ==
LOC: LC 11:01
PROVIDERS: ATTEND Obstetrics & Gynecology
PROC: 4A1HXCZ Monitoring of Products of Conception, Cardiac Rate, External Approach (ICD-10-PCS; principal; 2016-05-06)
DX: O47.03 False labor before 37 completed weeks of gestation, third trimester (principal); Z3A.35 35 weeks gestation of pregnancy
CPT/HCPCS: 59025; 80307; 81001; 84112

== ENCOUNTER 2016-05-06 15:02 | Outpatient (CLI) | payer MEDICAID ==
[2016-05-06 15:55] LABS: APPEARANCE,URINE SLIGHTLY-CLOUDY; BILIRUBIN,URINE NEGATIVE (NEGATIVE); CALCIUM OXALATE CRYSTALS,URINE FEW /HPF; GLUCOSE, URINE NEGATIVE (NEGATIVE); KETONES,URINE TRACE mg/dL (NEGATIVE); LEUKOCYTE ESTERASE,URINE NEGATIVE (NEGATIVE); NITRITE,URINE NEGATIVE (NEGATIVE); PROTEIN,URINE NEGATIVE (NEGATIVE); URINE SPECIFIC GRAVITY 1.021; UROBILINOGEN,URINE NEGATIVE mg/dL (<2.0)
--- NOTE | 2016-05-06 16:00 | L&D Flow Sheet ---
LD Flowsheet Datetime Report Generated by CPN: 05/06/2016 16:00 Datetime: 05/06/2016 15:46 NBP Sys/Maame/Mean (mmHg): 124 (QS system process) : 80 (QS system process) : 95 (QS system process) Pulse: 96 (QS system process) LaborFlag: OB Triage (QS system process) Datetime: 05/06/2016 15:31 NBP Sys/Maame/Mean (mmHg): 122 (QS system process) : 75 (QS system process) : 94 (QS system process) Pulse: 96 (QS system process) LaborFlag: OB Triage (QS system process) Datetime: 05/06/2016 15:24 Monitor Interventions for UA: Lucien Adjusted (Gayatri Crenshaw RN) Monitor Mode: External US (Gayatri Crenshaw, RN) Monitor Interventions for FHR: Ultrasound Adjusted (Gayatri Crenshaw, RN) FHR Baseline Rate : 150 (Gayatri Crenshaw RN) Pain Scale: 2 (Gayatri Crenshaw, RONI) Pain Presence: Intermittent (Gayatri Crenshaw, RN) Pain Type: Cramping (Gayatri Crenshaw, RN) Pain Location: Abdomen (Gayatri Crenshaw, RN) Pain Goal: 1 (Gayatri Crenshaw, RONI) Pain Relief Measures: Comfort Measures (Gayatri Crenshaw, RN) Pain Coping: Talking Through Contractions (Gayatri Crenshaw, RN) Vaginal Bleeding: Scant (Gayatri Crenshaw, RN) Level of Consciousness: Fully Conscious (Gayatri Crenshaw, RN) DTR's/Clonus: DTRs 2+; No Clonus (Gayatri Crenshaw, RN) Headache: Generalized (Gayatri Crenshaw, RN) Breath Sounds, Left: Clear and Equal (Gayatri Crenshaw, RN) Breath Sounds, Right: Clear and Equal (Gayatri Crenshaw, RN) Nausea/Vomiting: Denies (Gayatri Crenshaw, RONI) RUQ Epigastric Pain: Denies (Gayatri Crenshaw, RN) Oxygen Method: Room Air (Gayatri Crenshaw, RN) Patient Position/Activity: Left Lateral; Low Fowlers (Gayatri Crenshaw, RN) Comfort Measures: Breathing/Relaxation; Family Support (Gayatri Crenshaw, RONI) I/O Interventions: Popsicle; Clear Liquids Given (Gayatri Crenshaw RN) Instructional Method: Verbal; Patient Instructed; Family/Support Person Instructed; Verbalized Understanding (Gayatri Crenshaw RN) Plan of Care: Plan of Care Discussed (Gayatri Crenshaw RN) Unit Routine: Left Hand to Room; Call Giles; Bed; Visiting Policy; Waiting Areas; Phone/Cell Phone Use; Unit Personnel; Handwashing; Flu/Illness Precautions; Monitoring; Safety/Fall Risk Prevention; Bathroom Privileges (Gayatri Crenshaw, RONI) Pain Management: PRN Medications; Pain Scale/Goals; Comfort Measures (Gayatri Crenshaw RN) Related: Common Discomforts of ; Maternal Physical Changes; Maternal Emotional Changes; Nutrition; Hydration; Activity and Rest (Gayatri Crenshaw RN) LaborFlag: OB Triage (QS system process) Datetime: 05/06/2016 12:08 Monitor Mode: External; Palpation (Maryanne Webster RN) Frequency (min): irreg (Maryanne Webster, RONI) Quality: Mild (Maryanne Webster RN) Resting Tone (Palpate): Relaxed (Maryanne Webster RN) Monitor Mode: External US (Maryanne Webster, RONI) FHR Baseline Rate : 145 (Maryanne Webster, RN) Variability: Moderate 6-25 bpm (Maryanne Webster, RN) Accelerations: 15X15 (Maryanne Webster, RN) Decelerations: None (Maryanne Webster RN) Vaginal Exam Comments: no blood noted on kris pad (Maryanne Webster, RN) Communication Comments: PT frusterated with leaving, states she is tired of being uncomfortable and wants to be delivered. (Maryanne Webster RN) Datetime: 05/06/2016 12:03 Communication Comments: Dr. Garza on unit, FHR strip, urine results, assessment, SVE, amnisure and current status reviewed by . Order recieved to d/c pt home with instructions to call office to re schedule [facility] for today. (Maryanen Webster RN)
[2016-05-06 16:18] LABS: URINE METHADONE SCREEN NEGATIVE; URINE OPIATES LOW NEGATIVE; URINE PHENCYCLIDINE SCREEN NEGATIVE
[2016-05-06 16:23] LABS: URINE BARBITURATES SCREEN UNCONFIRMED POSITIVE
[2016-05-06 16:24] LABS: ABSOLUTE EOSINOPHILS # (AUTO) 0.1 10^3/uL (0.0-0.6); ABSOLUTE LYMPHOCYTES (AUTO) 2.2 10^3/uL (0.5-4.7); ABSOLUTE MONOCYTES (AUTO) 0.8 10^3/uL (0.1-1.4); ABSOLUTE NEUT (AUTO) 9.3 10^3/uL (1.7-8.2); BASOPHILS % (AUTO) 0.2 % (0-2); EOSINOPHILS % (AUTO) 0.7 % (0-6); HEMOGLOBIN 11.6 g/dL (12.0-15.5); HGB HCT DIFFERENCE -0.2; LYMPHOCYTES % (AUTO) 17.7 % (13-45); MEAN CORPUSCULAR HGB CONC 33.3 g/dL (32.0-36.0); MEAN CORPUSCULAR VOLUME 84 fl (80-97); MONOCYTES % (AUTO) 6.5 % (3-13); RED BLOOD COUNT 4.17 10^6/uL (3.72-5.28); RED CELL DISTRIBUTION WIDTH 13.4 % (11.5-14.0); SEGMENTED NEUTROPHILS % (AUTO) 74.9 % (42-78); WHITE BLOOD COUNT 12.5 10^3/uL (4.0-10.5)
[2016-05-06] MEDS ORDERED: MAG HYDROX/AL HYDROX/SIMETH SUSP 30 ML UDCUP ONE (16:28)
[2016-05-06 16:51] LABS: ALANINE AMINOTRANSFERASE 24 U/L (9-52); ALBUMIN 2.8 g/dL (3.5-5.0); ALKALINE PHOSPHATASE 116 U/L (38-126); ANION GAP 8 (5-19); ASPARTATE AMINO TRANSFERASE 13 U/L (14-36); BILIRUBIN,TOTAL 0.3 mg/dL (0.2-1.3); BLOOD UREA NITROGEN 7 mg/dL (7-20); CALCIUM 8.9 mg/dL (8.4-10.2); CARBON DIOXIDE 25 mmol/L (22-30); CHLORIDE 104 mmol/L (98-107); CREATININE RESULT 0.55 mg/dL (0.52-1.25); GLUCOSE 85 mg/dL (75-110); LDH 409 U/L (313-618); SODIUM 137.4 mmol/L (137-145); TOTAL PROTEIN 6.1 g/dL (6.3-8.2); URIC ACID 4.1 mg/dL (2.5-6.2)
--- NOTE | 2016-05-06 17:08 | Non Stress Test Report ---
Non Stress Test Datetime Report Generated by CPN: 05/06/2016 17:08 DEMOGRAPHIC EGA NST: 35.4 INDICATION Indication for Study: Ordered by Provider MONITORING Monitor Explained: Monitor Explained; Test Explained; Patient Verbalized Understanding Time on Monitor: 05/06/2016 15:26 Time off Monitor: 05/06/2016 17:02 NST Duration: 96 NST INTERVENTIONS NST Interventions: PO Hydration; Reposition Patient Physician Notified NST: Dr. Garza BABY A Movement : Present Contraction Frequency : 0 FHR Baseline : 145 Accelerations : 15X15 Decelerations : None Variability : Moderate 6-25bpm NST Review: Meets Criteria for Reactive NST NST Review and Verified By : Mitch Caicedo RNC NST Results: Reactive NST REPORT Report Trigger: Send Report
== END 2016-05-06 17:07 | disposition home or self-care (01) ==
LOC: LC 15:02
PROVIDERS: ATTEND Obstetrics & Gynecology
PROC: 4A1HXCZ Monitoring of Products of Conception, Cardiac Rate, External Approach (ICD-10-PCS; principal; 2016-05-06)
DX: O47.03 False labor before 37 completed weeks of gestation, third trimester (principal); Z3A.35 35 weeks gestation of pregnancy
CPT/HCPCS: 59025; 36415; 83615; 84550; 85025; 80053; 81001; 80307; J3490

== ENCOUNTER 2016-05-09 13:39 | Outpatient (CLI) | payer MEDICAID ==
[2016-05-09 14:29] LABS: ABSOLUTE EOSINOPHILS # (AUTO) 0.1 10^3/uL (0.0-0.6); ABSOLUTE LYMPHOCYTES (AUTO) 2.3 10^3/uL (0.5-4.7); ABSOLUTE MONOCYTES (AUTO) 0.8 10^3/uL (0.1-1.4); ABSOLUTE NEUT (AUTO) 9.7 10^3/uL (1.7-8.2); BASOPHILS % (AUTO) 0.1 % (0-2); EOSINOPHILS % (AUTO) 0.7 % (0-6); HEMOGLOBIN 11.7 g/dL (12.0-15.5); HGB HCT DIFFERENCE 0.1; LYMPHOCYTES % (AUTO) 17.7 % (13-45); MEAN CORPUSCULAR HGB CONC 33.3 g/dL (32.0-36.0); MEAN CORPUSCULAR VOLUME 84 fl (80-97); MONOCYTES % (AUTO) 6.5 % (3-13); RED BLOOD COUNT 4.17 10^6/uL (3.72-5.28); RED CELL DISTRIBUTION WIDTH 13.6 % (11.5-14.0)
[2016-05-09 14:32] LABS: ALANINE AMINOTRANSFERASE 20 U/L (9-52); ALBUMIN 2.8 g/dL (3.5-5.0); ALKALINE PHOSPHATASE 115 U/L (38-126); ANION GAP 11 (5-19); ASPARTATE AMINO TRANSFERASE 14 U/L (14-36); BILIRUBIN,TOTAL 0.3 mg/dL (0.2-1.3); BLOOD UREA NITROGEN 6 mg/dL (7-20); CARBON DIOXIDE 19 mmol/L (22-30); CHLORIDE 104 mmol/L (98-107); CREATININE RESULT 0.58 mg/dL (0.52-1.25); GLUCOSE 119 mg/dL (75-110); LDH 368 U/L (313-618); TOTAL PROTEIN 6.2 g/dL (6.3-8.2); URIC ACID 4.5 mg/dL (2.5-6.2)
[2016-05-09 14:52] LABS: APPEARANCE,URINE CLEAR; BILIRUBIN,URINE NEGATIVE (NEGATIVE); CALCIUM OXALATE CRYSTALS,URINE FEW /HPF; GLUCOSE, URINE NEGATIVE (NEGATIVE); KETONES,URINE TRACE mg/dL (NEGATIVE); LEUKOCYTE ESTERASE,URINE NEGATIVE (NEGATIVE); NITRITE,URINE NEGATIVE (NEGATIVE); PROTEIN,URINE NEGATIVE (NEGATIVE); UROBILINOGEN,URINE NEGATIVE mg/dL (<2.0)
[2016-05-09 15:01] LABS: URINE METHADONE SCREEN NEGATIVE; URINE OPIATES LOW NEGATIVE; URINE PHENCYCLIDINE SCREEN NEGATIVE
[2016-05-09 15:05] LABS: URINE BARBITURATES SCREEN UNCONFIRMED POSITIVE
--- NOTE | 2016-05-09 16:00 | L&D Flow Sheet ---
LD Flowsheet Datetime Report Generated by CPN: 05/09/2016 16:00 Datetime: 05/09/2016 15:01 Patient Care Comments: Monitors removed. Pt d/c home and scheduled for an induction on 05/17 and instructed to start 24 hour urine tonight by Dr. Gonsalez and return to the office. (Katharine Dumont RN) Datetime: 05/09/2016 15:00 Monitor Mode: External (Katharine Dumont RN) Frequency (min): No ctxs noted (Katharine Marhefka, RN) Quality: Mild (Katharine Marhefka, RN) Resting Tone (Palpate): Relaxed (Katharine Marhefka, RN) Monitor Mode: External US (Katharine Marhefka, RN) FHR Baseline Rate : 140 (Katharine Marhefka, RN) FHR Baseline Changes: No Baseline Change (Katharine Marhefka, RN) Variability: Moderate 6-25 bpm (Katharine Marhefka, RN) Accelerations: 15X15 (Katharine Marhefka, RN) Decelerations: None (Katharine Marhefka, RN) Datetime: 05/09/2016 14:57 NBP Sys/Maame/Mean (mmHg): 149 (QS system process) : 79 (QS system process) : 106 (QS system process) Pulse: 113 (QS system process) LaborFlag: Antepartum (QS system process) Datetime: 05/09/2016 14:52 NBP Sys/Maame/Mean (mmHg): 144 (QS system process) : 87 (QS system process) : 109 (QS system process) Pulse: 113 (QS system process) LaborFlag: Antepartum (QS system process) Datetime: 05/09/2016 14:42 NBP Sys/Maame/Mean (mmHg): 155 (QS system process) : 95 (QS system process) : 115 (QS system process) Pulse: 114 (QS system process) LaborFlag: Antepartum (QS system process) Datetime: 05/09/2016 14:30 Monitor Mode: External (Katharine Dumont RN) Frequency (min): No ctxs noted (Katharine Dumont RN) Quality: Mild (Katharine Dumont RN) Resting Tone (Palpate): Relaxed (Katharine Dumont RN) Monitor Mode: External US (Katharine Dumont RN) FHR Baseline Rate : 145 (Katharine Dumont RN) FHR Baseline Changes: No Baseline Change (Katharine Dumont RN) Variability: Moderate 6-25 bpm (Katharine Dumont RN) Accelerations: 15X15 (Katharine Dumont RN) Decelerations: None (Katharine Dumont RN) Datetime: 05/09/2016 14:28 NBP Sys/Maame/Mean (mmHg): 137 (QS system process) : 80 (QS system process) : 101 (QS system process) Pulse: 118 (QS system process) LaborFlag: Antepartum (QS system process) Datetime: 05/09/2016 14:22 Pain Scale: 3 (Katharine Dumont RN) Pain Presence: Constant (Katharine Dumont RN) Pain Type: Ache (Katharine Dumont RN) Pain Location: Head (Katharine Dumont RN) Pain Goal: 0 (Katharine Dumont RN) Pain Relief Measures: Comfort Measures (Katharine Dumont RN) Membrane Status: Intact (Katharine Dumont RN) Vaginal Bleeding: None (Katharine Dumont RN) Level of Consciousness: Fully Conscious (Katharine Dumont RN) DTR's/Clonus: DTRs 1+; No Clonus (Katharine Dumont RN) Headache: Localized (Annotations: Pt states her h/a is on her right side ) (Katharine Dumont RN) Breath Sounds, Left: Clear and Equal (Katharine Dumont RN) Breath Sounds, Right: Clear and Equal (Katharine Dumont RN) Nausea/Vomiting: Denies (Katharine Dumont RN) RUQ Epigastric Pain: Denies (Katharine Dumont RN) LaborFlag: Antepartum (QS system process) Datetime: 05/09/2016 14:15 I/O Interventions: Popsicle; Clear Liquids Given (Katharine Dumont RN) Datetime: 05/09/2016 14:12 NBP Sys/Maame/Mean (mmHg): 142 (QS system process) : 82 (QS system process) : 106 (QS system process) Pulse: 116 (QS system process) LaborFlag: Antepartum (QS system process) Datetime: 05/09/2016 14:09 Patient Position/Activity: Right Lateral; Semi-Fowlers (Katharine Dumont RN)
== END 2016-05-09 15:02 | disposition home or self-care (01) ==
LOC: LC 13:39
PROVIDERS: ATTEND Student in an Organized Health Care Education/Training Program
PROC: 4A1HXCZ Monitoring of Products of Conception, Cardiac Rate, External Approach (ICD-10-PCS; principal; 2016-05-09)
DX: O10.913 Unspecified pre-existing hypertension complicating pregnancy, third trimester (principal); Z3A.36 36 weeks gestation of pregnancy
CPT/HCPCS: 36415; 59025; 80053; 80307; 81001; 83615; 84550; 85025

== ENCOUNTER 2016-05-10 15:27 | Outpatient (CLI) | payer MEDICAID ==
--- NOTE | 2016-05-10 15:31 | Non Stress Test Report ---
Non Stress Test Datetime Report Generated by CPN: 05/10/2016 15:31 DEMOGRAPHIC EGA NST: 36.0 INDICATION Indication for Study: Ordered by Provider MONITORING Monitor Explained: Monitor Explained; Test Explained; Patient Verbalized Understanding Time on Monitor: 05/09/2016 14:10 Time off Monitor: 05/09/2016 15:01 NST Duration: 51 NST INTERVENTIONS NST Interventions: PO Hydration; Reposition Patient Physician Notified NST: Dr. Gonsalez (Annotations: Data stored by CPN on behalf of user) BABY A Movement : Present Contraction Frequency : 0 FHR Baseline : 145 Accelerations : 15X15 Variability : Moderate 6-25bpm (Annotations: Data stored by CPN on behalf of user) NST Review: Meets Criteria for Reactive NST NST Review and Verified By : Mitch Caicedo [facility] NST Results: Reactive (Annotations: Data stored by CPN on behalf of user) NST REPORT Report Trigger: Send Report
--- NOTE | 2016-05-10 16:01 | L&D Flow Sheet ---
LD Flowsheet Datetime Report Generated by CPN: 05/10/2016 16:00 Datetime: 05/10/2016 15:48 Stage of : OB Triage (Yasmin Swanson RN) NBP Sys/Maame/Mean (mmHg): 168 (QS system process) : 87 (QS system process) : 118 (QS system process) Pulse: 125 (QS system process) Respirations: 18 (Yasmin Swanson RN) Temperature (F): 97.5 (Yasmin Swanson RN) Temperature (C): 36.4 (QS system process) Monitor Mode: External (Yasmin Swanson RN) Monitor Interventions for UA: [place] Adjusted (Yasmin Swanson RN) Resting Tone (Palpate): Relaxed (Yamsin Swanson RN) Monitor Mode: External US (Yasmin Swanson RN) Monitor Interventions for FHR: Ultrasound Adjusted (Yasmin Swanson RN) FHR Baseline Rate : 145 (Yasmin Swanson RN) Pain Scale: 3 (Yasmin Swanson RN) Pain Presence: Intermittent (Yasmin Swanson RN) Pain Type: Contraction (Yasmin Swanson RN) Pain Location: Abdomen; Back (Yasmin Swanson RN) Pain Relief Measures: Comfort Measures (Yasmin Swanson RN) Pain Coping: Talking Through Contractions; Breathing Through Contractions (Yasmin Swanson, RONI) Membrane Status: Intact (Yasmin Swanson RN) Vaginal Bleeding: None (Yasmin Swanson RN) Level of Consciousness: Fully Conscious (Yasmin Swanson RN) DTR's/Clonus: DTRs 1+; No Clonus (Yasmin Swanson, RONI) Headache: Occipital; Temporal (Yasmin Swanson, RONI) Patient Position/Activity: Right Tilt; Low Fowlers (Yasmin Swanson RN) Comfort Measures: Family Support (Yasmin Swanson RN) I/O Interventions: Popsicle; Clear Liquids Given (Yasmin Swanson RN) Instructional Method: Verbal; Patient Instructed; Family/Support Person Instructed; Verbalized Understanding (Yasmin Swanson RN) Plan of Care: Plan of Care Discussed; Labor (Yasmin Swanson RN) Unit Routine: [place] to Room; Call Giles; Bed; Phone/Cell Phone Use; Unit Personnel; Handwashing; Monitoring; Safety/Fall Risk Prevention; Diet/Nutrition Services; Bathroom Privileges (Yasmin Swanson, RONI) Pain Management: Pain Scale/Goals; Comfort Measures (Yasmin Swanson, RONI) Related: Common Discomforts of ; Maternal Physical Changes; Maternal Emotional Changes; Nutrition; Hydration; Activity and Rest (Yasmin Swanson, RONI) Communication: RN at Bedside; RN Reviewed Strip (Yasmin Swanson RN) LaborFlag: OB Triage (QS system process)
[2016-05-10] MEDS ORDERED: HYDROXYZINE PAMOATE 50 MG CAPSULE PO ONE (16:47)
[2016-05-10] MEDS ORDERED: HYDROXYZINE PAMOATE 50 MG CAPSULE ONE (16:51)
[2016-05-10 17:04] LABS: APPEARANCE,URINE CLEAR; BILIRUBIN,URINE NEGATIVE (NEGATIVE); GLUCOSE, URINE 50 mg/dL (NEGATIVE); KETONES,URINE TRACE mg/dL (NEGATIVE); LEUKOCYTE ESTERASE,URINE NEGATIVE (NEGATIVE); NITRITE,URINE NEGATIVE (NEGATIVE); PROTEIN,URINE 30 mg/dL (NEGATIVE); URINE SPECIFIC GRAVITY 1.026; UROBILINOGEN,URINE NEGATIVE mg/dL (<2.0)
--- NOTE | 2016-05-10 17:08 | Non Stress Test Report ---
Non Stress Test Datetime Report Generated by CPN: 05/10/2016 17:07 DEMOGRAPHIC EGA NST: 36.1 INDICATION Indication for Study: Other Indication for Study (NST) Other: LABOR CHECK- [facility] MONITORING Monitor Explained: Monitor Explained; Test Explained; Patient Verbalized Understanding Time on Monitor: 05/10/2016 15:48 Time off Monitor: 05/10/2016 16:43 NST Duration: 55 NST INTERVENTIONS NST Interventions: PO Hydration; Reposition Patient BABY A Movement : Present Contraction Frequency : 2-4 FHR Baseline : 145 Accelerations : 15X15 Decelerations : None Variability : Moderate 6-25bpm NST Review: Meets Criteria for Reactive NST NST Review and Verified By : S Ebonie RN NST Results: Reactive NST REPORT Report Trigger: Send Report
[2016-05-10 17:23] LABS: URINE METHADONE SCREEN NEGATIVE; URINE OPIATES LOW NEGATIVE; URINE PHENCYCLIDINE SCREEN NEGATIVE
[2016-05-10 17:31] LABS: URINE BARBITURATES SCREEN UNCONFIRMED POSITIVE
== END 2016-05-10 16:58 | disposition home or self-care (01) ==
LOC: LC 15:27
PROVIDERS: ATTEND Obstetrics & Gynecology
PROC: 4A1HXCZ Monitoring of Products of Conception, Cardiac Rate, External Approach (ICD-10-PCS; principal; 2016-05-10)
DX: O47.03 False labor before 37 completed weeks of gestation, third trimester (principal); Z3A.36 36 weeks gestation of pregnancy
CPT/HCPCS: 59025; 81001; 80307; J3490

== ENCOUNTER 2016-05-14 21:22 | Inpatient (IN) | payer MEDICAID ==
[2016-05-14] MEDS ORDERED: MISOPROSTOL 0.2 MG TABLET ONE (21:35)
[2016-05-14] MEDS ORDERED: LIDOCAINE 1% INJ-PF (10 MG/ML) 30 ML SDV ONE (21:36)
[2016-05-14] MEDS ORDERED: OXYTOCIN/NORMAL SALINE 20 UNIT/1,000 ML RTUINJ ONE (21:36)
[2016-05-14] MEDS ORDERED: RINGERS SOLUTION,LACTATED 1,000 ML IV PRN (21:40)
--- NOTE | 2016-05-14 22:00 | L&D Flow Sheet ---
LD Flowsheet Datetime Report Generated by CPN: 05/14/2016 22:00 Datetime: 05/14/2016 21:49 Dilatation (cm): 9.0 (Kristyn Ko) Effacement (%): 100 (Kristyn Ko) Station: 1 (Kristyn Ko) Exam by: A Ko Rn (Kristyn Ko) Datetime: 05/14/2016 21:40 Pain Scale: 4 (Kristyn Ko) Pain Presence: Intermittent (Kristyn Ko) Pain Type: Cramping (Kristyn Ko) Pain Location: Abdomen; Back (Kristyn Ko) Pain Goal: 0 (Kristyn Ko) Pain Relief Measures: Comfort Measures (Kristyn Ko) Pain Coping: Breathing Through Contractions (Kristyn Ok) Vaginal Bleeding: None (Kristyn Ko) Level of Consciousness: Fully Conscious (Kristyn Ko) DTR's/Clonus: DTRs 2+; No Clonus (Kristyn Ko) Headache: Denies (Kristyn Ko) Breath Sounds, Left: Clear and Equal (Kristyn Ko) Breath Sounds, Right: Clear and Equal (Kristyn Ko) Nausea/Vomiting: Denies (Kristyn Ko) RUQ Epigastric Pain: Denies (Kristyn Ko) Instructional Method: Verbal (Kristyn Ko) Plan of Care: Plan of Care Discussed (Kristyn Ko) Unit Routine: [place] to Room; Call Giles; Bed; Visiting Policy; Waiting Areas; Security; Phone/Cell Phone Use; Photography; Unit Personnel; Consents Signed; Handwashing; Flu/Illness Precautions; Monitoring; IV Pumps; Safety/Fall Risk Prevention; Diet/Nutrition Services; Bathroom Privileges; Routine Time Outs; Medications (Kristynmeg Ko) LaborFlag: OB Triage (QS system process) Datetime: 05/14/2016 21:38 IV/Blood Work: IV Started; IV Bolus Started (Annotations: 18g right hand ) (Kristyn Ko) Patient Position/Activity: Hands-Knees (Kristyn Ko) Datetime: 05/14/2016 21:35 NBP Sys/Maame/Mean (mmHg): 161 (QS system process) : 98 (QS system process) : 118 (QS system process) Pulse: 120 (QS system process) Communication Comments: Dr. taylor called and notified of pt. arrival, hx, and sve. she states she is on her way to the unit (Latosha Guerrero RN) LaborFlag: OB Triage (QS system process) Datetime: 05/14/2016 21:30 Dilatation (cm): 8.0 (Kristyn Ko) Effacement (%): 100 (Kristyn Ko) Station: 0 (Kristyn Ko) Exam by: Ree Guerrero RN (Kristyn Ko) Datetime: 05/14/2016 21:22 Patient Care Comments: patient to the unit for labor check (Kristyn Ko)
[2016-05-14 22:15] LABS: ABSOLUTE LYMPHOCYTES (AUTO) 2.5 10^3/uL (0.5-4.7); ABSOLUTE MONOCYTES (AUTO) 1.1 10^3/uL (0.1-1.4); ABSOLUTE NEUT (AUTO) 11.8 10^3/uL (1.7-8.2); BASOPHILS % (AUTO) 0.3 % (0-2); EOSINOPHILS % (AUTO) 0.3 % (0-6); HEMOGLOBIN 11.6 g/dL (12.0-15.5); HGB HCT DIFFERENCE -0.2; LYMPHOCYTES % (AUTO) 16.1 % (13-45); MEAN CORPUSCULAR HEMOGLOBIN 27.7 pg (27.0-33.4); MEAN CORPUSCULAR HGB CONC 33.3 g/dL (32.0-36.0); MEAN CORPUSCULAR VOLUME 83 fl (80-97); MONOCYTES % (AUTO) 7.1 % (3-13); RED BLOOD COUNT 4.21 10^6/uL (3.72-5.28); RED CELL DISTRIBUTION WIDTH 13.7 % (11.5-14.0); SEGMENTED NEUTROPHILS % (AUTO) 76.2 % (42-78); WHITE BLOOD COUNT 15.4 10^3/uL (4.0-10.5)
[2016-05-14] MEDS ORDERED: IBUPROFEN 800 MG TABLET ONE (22:57)
[2016-05-15] MEDS ORDERED: DIBUCAINE 1% OINTMENT 28 GM TP PRN (00:47)
[2016-05-15] MEDS ORDERED: ZOLPIDEM TARTRATE 5 MG TABLET PO PRN (00:47)
[2016-05-15] MEDS ORDERED: OXYTOCIN/NORMAL SALINE 1,000 ML IV PRN (00:47)
[2016-05-15] MEDS ORDERED: DIPH/PERTUSS(ACELL)/TETANUS VAC/PF 0.5 ML SYR (>=10YO) IM PRN (00:47)
[2016-05-15] MEDS ORDERED: MEASLES,MUMPS&RUBELLA VACC/PF 0.5 ML VIAL SUBCUT PRN (00:47)
[2016-05-15] MEDS ORDERED: BENZOCAINE/MENTHOL AEROSOL SPRAY 56 ML TOP PRN (00:47)
[2016-05-15] MEDS ORDERED: ACETAMINOPHEN WITH CODEINE #3 TABLET PO PRN ×2 (00:47)
--- NOTE | 2016-05-15 00:51 | Delivery Summary ---
Del Sum A-C Datetime Report Generated by CPN: 05/15/2016 00:50 ADMISSION DATA Chief Complaint: Uterine Contractions Indication for Induction: Not Applicable Admission Impression: Term, Intrauterine Admit Provider Comments: Term labor. arom clear. DELIVERY PERSONNEL Delivery Doctor:: Rema Garza MD Labor and Delivery Nurse:: Kristyn Ko RN Nursery Nurse:: Lakeisha Hernandez, RN Enterprise Project Manager/DISCHARGING MACHINE OPERATOR: Monserrat Rolle, ST MATERNAL INFORMATION Delivery Anesthesia: None Medications After Delivery: Pitocin Bolus-Please Comment Meds After Delivery Comment: pitocin 20 units/1000 ml NS bolus following delivery of placenta Maternal Complications: Precipitous Labor (<3hrs) Provider Comments: over intact perineum, no lacs. live female ap 8/9. spontaneous intact placenta 3vc. no complications LABOR SUMMARY EDC: 06/06/2016 00:00 No. Babies in Womb: 1 Attempted: No Labor Anesthesia: None LABOR INFORMATION Reason for Induction: Not Applicable Onset of Labor: 05/14/2016 21:30 Complete Dilatation: 05/14/2016 22:00 Oxytocin: N/A Group B Beta Strep: negative Antibiotics # of Doses: 0 Antibiotics Time of Last Dose: n/a Steroids Given: None Reason Steroids Not Administered: Not Applicable MEMBRANES Membranes Rupture Method: Artificial Rupture of Membranes: 05/14/2016 22:03 (Annotations: remaining sack ruptured) Length of Rupture (hr): 0.27 Amniotic Fluid Color: Clear Amniotic Fluid Amount: None Amniotic Fluid Odor: Normal STAGES OF LABOR Stage 1 hr: 0 Stage 1 min: 30 Stage 2 hr: 0 Stage 2 min: 19 Stage 3 hr: 0 Stage 3 min: 4 Total Time in Labor hr: 0 Total Time in Labor min: 53 VAGINAL DELIVERY Episiotomy: None Laceration Extension: N/A Laceration Type: None Laceration Repair: Not Applicable Sponge Count Correct: N/A Sharps Count Correct: N/A CSECTION DELIVERY Primary Indication: N/A Secondary Indication: N/A CSection Incidence: N/A Labor: N/A Elective: N/A CSection Incision: N/A BABY A INFORMATION Infant Delivery Date/Time: 05/14/2016 22:19 Method of Delivery: Vaginal Born in Route : No : N/A Forceps: N/A Vacuum Extraction: N/A Shoulder Dystocia : No PRESENTATION/POSITION BABY A Presentation: Cephalic Cephalic Presentation: Vertex Breech Presentation: N/A PLACENTA INFORMATION BABY A Placenta Delivery Time : 05/14/2016 22:23 Placenta Method of Delivery: Spontaneous Placenta Status: Delivered SCORES BABY A Heart Rate 1 min: >100 bpm Resp Effort 1 min: Good Cry Reflex Irritability 1 min: Cough or Sneeze or Pulls Away Muscle Tone 1 min: Active Motion Color 1 min: Blue/Pale SCORE 1 MIN: 8 Heart Rate 5 min: >100 bpm Resp Effort 5 min: Good Cry Reflex Irritability 5 min: Cough or Sneeze or Pulls Away Muscle Tone 5 min: Active Motion Color 5 min: Body [place], Extremities Blue SCORE 5 MIN: 9 INFANT INFORMATION BABY A Gestational Age at Delivery: 36.5 Gestational Status: Late - 34- 36.6 Weeks Outcome : Liveborn Infant Condition : Stable Infant Sex: Female IDENTIFICATION BABY A Verification Date/Time: 05/14/2016 22:28 ID Band Number: [id number] Mother's Name Verified: Yes RN Verifying : Igor Chaparroco, RN Additional Verifying Personnel: [facility], WEIGHT/LENGTH BABY A Birthweight (gm): 3406 Infant Weight (lb): 7 Weight (oz): 8 Length (in): 20.00 Length (cm): 50.80 CORD INFORMATION BABY A No. Cord Vessels: 3 Nuchal Cord : N/A Cord Blood Taken: Yes-For Eval (Mom's Blood Type - or O+) ASSESSMENT BABY A Skin to Skin: Yes Skin to Skin Time (min): 30 SIGNATURES Signature: with User ID: [email or web address]
--- NOTE | 2016-05-15 01:33 | Admission Physical ---
Datetime Report Generated by CPN: 05/15/2016 01:33 CURRENT ADMISSION Hx Assessment: The History has been Reviewed and is Current Chief Complaint: Uterine Contractions Indication for Induction: Not Applicable Admit Plan: Admit to Unit; Initiate Labor Protocol ALLERGIES Medication Allergies: Yes Medication Allergies: Penicillins/Anaphylaxis (05/06/2016); amoxicillin/SV/Anaphylaxis (05/06/2016) Latex: No Latex Allergies Food Allergies: denies Environmental Allergies: denies OBSTETRICAL HISTORY EDC: 06/06/2016 00:00 : 4 Para: 3 Term: 2 : 1 SAB: 0 IAB: 0 Ectopic: 0 Livin Cesareans: 0 VBACs: 0 Multiple Births: 0 Gestational Diabetes: No Rh Sensitization: No Incompetent Cervix: No SAMUEL: No Infertility: No ART Treatment: No Uterine Anomaly: No IUGR: No Hx Previous C/S: No Macrosomia: No Hx Loss/Stillborn: No PIH: No Hx : No Placenta Previa/Abruption: No Depression/PP Depression: No PTL/PROM: No Post Hemorrhage: No Obstetrical History Comments: G1- 2005 Del M 7lb 12oz at 39 weeks G2- 2007 Del F 7lb 10oz at 37 weeks G3- 2016 Del M 6lb 14oz at 35.6 weeks G4- current GHT[employer] SEE RECORDS Alcohol: No Marijuana : No Cocaine: No Other Illicit Drugs: No MEDICAL HISTORY Diabetes: No Blood Transfusion: No Pulmonary Disease (Asthma, TB): No Breast Disease: No Hypertension: Yes Recruiter Surgery: No Heart Disease: No Hosp/Surgery: No Autoimmune Disorder: No Anesthetic Complications: No Kidney Disease: No Abnormal Pap Smear: No Neuro/Epilepsy: No Psychiatric Disorders: No Other Medical Diseases: No Hepatitis/Liver Disease: No Significant Family History: No Varicosities/Phlebitis: No Trauma/Violence : No Thyroid Dysfunction: No Medical History Comments: Questionable CHTN INFECTIOUS HISTORY Gonorrhea: No Genital Herpes: No Chlamydia: No Tuberculosis: No Syphilis: No Hepatitis: No HIV/AIDS Exposure: No Rash or Viral Illness: No HPV: No PHYSICAL EXAM General: Normal HEENT: Deferred Neurologic: Deferred Thyroid: Deferred Heart: Normal Lungs: Normal Breast: Deferred Back: Deferred Abdomen: Normal Genitourinary Exam: Normal Extremities: Normal DTRs: Normal Pelvic Type: Adequate Vital Signs: Reviewed; Within Normal Limits FETUS A EGA: 36.5 Admit Comment: Term labor. arom clear. PLANS FOR LABOR AND DELIVERY Labor and Delivery: None Pain Management: None Feeding Preference: Breast Benefit of Breast Feed Discussed: Yes Circumcision: N/A INFORMED CONSENT Signature: with User ID: [email or web address]
[2016-05-15 01:42] LABS: APPEARANCE,URINE CLOUDY; BILIRUBIN,URINE NEGATIVE (NEGATIVE); GLUCOSE, URINE 50 mg/dL (NEGATIVE); KETONES,URINE 20 mg/dL (NEGATIVE); LEUKOCYTE ESTERASE,URINE TRACE (NEGATIVE); NITRITE,URINE NEGATIVE (NEGATIVE); PROTEIN,URINE 100 mg/dL (NEGATIVE); URINE SPECIFIC GRAVITY 1.032; UROBILINOGEN,URINE NEGATIVE mg/dL (<2.0)
[2016-05-15 01:56] LABS: URINE BARBITURATES SCREEN UNCONFIRMED POSITIVE; URINE METHADONE SCREEN NEGATIVE; URINE OPIATES LOW NEGATIVE; URINE PHENCYCLIDINE SCREEN NEGATIVE
[2016-05-15] MEDS: IBUPROFEN 800 MG TABLET PO SCH ×3 (05:55→23:05)
--- NOTE | 2016-05-15 07:00 | L&D Flow Sheet ---
LD Flowsheet Datetime Report Generated by CPN: 05/15/2016 07:00 Datetime: 05/15/2016 00:18 Temperature (F): 98.2 (Kristyn Ko) Temperature (C): 36.8 (QS system process) Temperature Route: Oral (Kristyn Ko) Pain Scale: 0 (Kristyn Ko) Pain Presence: None/Denies (Kristyn Ko) Datetime: 05/15/2016 00:07 NBP Sys/Maame/Mean (mmHg): 137 (QS system process) : 84 (QS system process) : 106 (QS system process) Pulse: 101 (QS system process) Datetime: 05/14/2016 22:30 Pain Scale: 2 (Kristyn Ko) Pain Presence: Constant (Kristyn Ko) Pain Type: Burning (Kristyn Ko) Pain Location: Perineum (Kristyn Ko) Pain Goal: 0 (Kristyn Ko) Pain Relief Measures: Pain Medication Given (Kristyn Ko) Datetime: 05/14/2016 22:27 NBP Sys/Maame/Mean (mmHg): 130 (QS system process) : 62 (QS system process) : 89 (QS system process) Pulse: 110 (QS system process) Datetime: 05/14/2016 22:20 Stage of : Recovery (Kristyn Ko) Datetime: 05/14/2016 22:19 Patient Care Comments: vaginal delivery of baby girl (Kristyn Ko) Datetime: 05/14/2016 22:15 Pushing: Coached on Pushing; Urge to Push (Kristyn Ko) Pushing Position: Pushing with Contractions (Kristyn Ko) Pushing Progress: Descent with Pushing (Kristyn Ko) Datetime: 05/14/2016 22:10 Pushing: Coached on Pushing; Urge to Push (Kristyn Ko) Pushing Position: Pushing with Contractions (Kristyn Ko) Pushing Progress: Descent with Pushing (Kristyn Ko) Datetime: 05/14/2016 22:05 NBP Sys/Maame/Mean (mmHg): 149 (QS system process) : 76 (QS system process) : 105 (QS system process) Pulse: 108 (QS system process) Pushing: Coached on Pushing; Urge to Push (Kristyn Ko) Pushing Position: Pushing with Contractions (Kristyn Ko) Pushing Progress: Descent with Pushing (Kristyn Ko) LaborFlag: OB Triage (QS system process) Datetime: 05/14/2016 22:02 Membranes Ruptured Date/Time: 05/14/2016 22:03 (Annotations: remaining sack ruptured) (Kristyn Ko) Membranes Rupture Method: Artificial (Kristyn Ko) Datetime: 05/14/2016 22:00 Monitor Mode: External; Palpation (Kristyn Ko) Monitor Interventions for UA: [place] Adjusted (Kristyn Ko) Frequency (min): 2-3 (Kristyn Ko) Quality: Moderate to Strong (Kristyn Ko) Duration (sec): 40-60 (Kristyn Ko) Resting Tone (Palpate): Relaxed (Kristyn Ko) Monitor Mode: External US (Kristyn Ko) Monitor Interventions for FHR: Ultrasound Adjusted (Kristyn Ko) FHR Baseline Rate : 140 (Kristyn Ko) FHR Baseline Changes: Unable to Determine (Kristyn Ko) Variability: Moderate 6-25 bpm (Kristyn Ko) Accelerations: 15X15 (Kristyn Ko) Dilatation (cm): 10.0 (Kristyn Ko) Effacement (%): 100 (Kristyn Ko) Station: 1 (Kristyn Ko) Exam by: Dr Taylor (Kristyn Ko) Datetime: 05/14/2016 21:57 Patient Care Comments: Dr Taylor at the bedside for delivery (Kristyn Ko) Datetime: 05/14/2016 21:49 Dilatation (cm): 9.0 (Kristyn Ko) Effacement (%): 100 (Kristyn Ko) Station: 1 (Kristyn Ko) Exam by: John Ko Rn (Kristyn Ko) Datetime: 05/14/2016 21:40 Pain Scale: 4 (Kristyn Ko) Pain Presence: Intermittent (Kristyn Ko) Pain Type: Cramping (Kristyn Ko) Pain Location: Abdomen; Back (Kristyn Ko) Pain Goal: 0 (Kristyn Ko) Pain Relief Measures: Comfort Measures (Kristyn Ko) Pain Coping: Breathing Through Contractions (Kristyn Ko) Vaginal Bleeding: None (Kristyn Ko) Level of Consciousness: Fully Conscious (Kristyn Ko) DTR's/Clonus: DTRs 2+; No Clonus (Kristyn Ko) Headache: Denies (Kristyn Ko) Breath Sounds, Left: Clear and Equal (Kristyn Ko) Breath Sounds, Right: Clear and Equal (Kristyn Ko) Nausea/Vomiting: Denies (Kristyn Ko) RUQ Epigastric Pain: Denies (Kristyn Ko) Instructional Method: Verbal (Kristyn Ko) Plan of Care: Plan of Care Discussed (Kristyn Ko) Unit Routine: [place] to Room; Call Giles; Bed; Visiting Policy; Waiting Areas; Security; Phone/Cell Phone Use; Photography; Unit Personnel; Consents Signed; Handwashing; Flu/Illness Precautions; Monitoring; IV Pumps; Safety/Fall Risk Prevention; Diet/Nutrition Services; Bathroom Privileges; Routine Time Outs; Medications (Kristyn Ko) LaborFlag: OB Triage (QS system process) Datetime: 05/14/2016 21:38 IV/Blood Work: IV Started; IV Bolus Started (Annotations: 18g right hand ) (Kristyn Ko) Patient Position/Activity: Hands-Knees (Kristyn Ko) Datetime: 05/14/2016 21:35 NBP Sys/Maame/Mean (mmHg): 161 (QS system process) : 98 (QS system process) : 118 (QS system process) Pulse: 120 (QS system process) Communication Comments: Dr. taylor called and notified of pt. arrival, hx, and sve. she states she is on her way to the unit (Latosha Guerrero RN) LaborFlag: OB Triage (QS system process) Datetime: 05/14/2016 21:30 Dilatation (cm): 8.0 (Kristyn Ko) Effacement (%): 100 (Kristyn Ko) Station: 0 (Kristyn Ok) Exam by: K Cesar RN (Kristyn Ko) Datetime: 05/14/2016 21:22 Patient Care Comments: patient to the unit for labor check (Kristyn Ko)
[2016-05-15 07:44] LABS: HEMATOCRIT 32.7 % (36.0-47.0); HEMOGLOBIN 10.8 g/dL (12.0-15.5); HGB HCT DIFFERENCE -0.3; MEAN CORPUSCULAR HEMOGLOBIN 27.7 pg (27.0-33.4); MEAN CORPUSCULAR HGB CONC 32.9 g/dL (32.0-36.0); MEAN CORPUSCULAR VOLUME 84 fl (80-97); RED BLOOD COUNT 3.88 10^6/uL (3.72-5.28); RED CELL DISTRIBUTION WIDTH 13.6 % (11.5-14.0); WHITE BLOOD COUNT 17.3 10^3/uL (4.0-10.5)
--- NOTE | 2016-05-15 08:47 | PDOC PROGRESS REPORT ---
Subjective-OB Subjective: Post Delivery Day: 30 year old. Denies any needs at this time Physical Exam (OB) Vital Signs: Temp Pulse Resp BP Pulse Ox 97.8 F 73 18 117/60 100 05/15/16 07:00 05/15/16 07:00 05/15/16 07:00 05/15/16 07:00 05/15/16 07:00 Intake & Output 05/14/16 05/15/16 05/16/16 06:59 06:59 06:59 Weight 103.6 kg - PIH/Pre-Eclampsia DTR's: 1 + Clonus: Negative Headache: Absent Epigastric Pain: No Visual Changes: No - Lochia Lochia Amount: Scant < 10 ml Lochia Color: Rubra/Red - Abdomen Description: Soft, Round Hernia Present: No Bowel Sounds: Normoactive Flatus Presence: Present Stool: No Fundal Description: Firm, Midline Fundal Height: u/u - u/2 Objective-Diagnostic Laboratory: 05/15/16 06:33 05/14/16 05/14/16 05/15/16 21:57 21:57 01:10 WBC 15.4 H RBC 4.21 Hgb 11.6 L Hct 35.0 L MCV 83 MCH 27.7 MCHC 33.3 RDW 13.7 Plt Count 253 Seg Neutrophils % 76.2 Lymphocytes % 16.1 Monocytes % 7.1 Eosinophils % 0.3 Basophils % 0.3 Absolute Neutrophils 11.8 H Absolute Lymphocytes 2.5 Absolute Monocytes 1.1 Absolute Eosinophils 0.0 Absolute Basophils 0.0 Urine Color ARNULFO Urine Appearance CLOUDY Urine pH 5.0 Ur Specific [place] 1.032 Urine Protein 100 H Urine Glucose (UA) 50 H Urine Ketones 20 H Urine Blood LARGE H Urine Nitrite NEGATIVE Ur Leukocyte Esterase TRACE H Blood Type O NEGATIVE Antibody Screen POSITIVE 05/15/16 06:33 WBC 17.3 H RBC 3.88 Hgb 10.8 L Hct 32.7 L MCV 84 MCH 27.7 MCHC 32.9 RDW 13.6 Plt Count 245 Seg Neutrophils % Lymphocytes % Monocytes % Eosinophils % Basophils % Absolute Neutrophils Absolute Lymphocytes Absolute Monocytes Absolute Eosinophils Absolute Basophils Urine Color Urine Appearance Urine pH Ur Specific [place] Urine Protein Urine Glucose (UA) Urine Ketones Urine Blood Urine Nitrite Ur Leukocyte Esterase Blood Type Antibody Screen
[2016-05-15] MEDS: DOCUSATE SODIUM 100 MG CAPSULE PO SCH ×2 (09:32→17:07)
[2016-05-15] MEDS: FERROUS SULFATE 325 MG TABLET PO SCH ×2 (09:32→17:07)
[2016-05-15] MEDS: PRENATAL VITAMIN W-O CA NO5/FE FUMARATE/FA CAPSULE PO SCH (09:32)
[2016-05-15] MEDS: SENNOSIDES/DOCUSATE 8.6-50 MG 1 EACH TABLET PO SCH (09:33)
--- NOTE | 2016-05-15 18:00 | L&D Current Admission ---
Current Admit Datetime Report Generated by CPN: 05/15/2016 18:00 ADMISSION INFORMATION Current Admit Date/Time: 05/14/2016 22:25 (05/14/2016 21:40:Latosha Guerrero RN) Reason for Admission: Onset of Labor (05/14/2016 21:40:Latosha Guerrero RN) Chief Complaint: Contractions; Suspected Rupture of Membranes (05/14/2016 21:40:Kristyn Ko) EGA per Dates: 36.5 (05/14/2016 21:40:QS system process) Method of Arrival: Wheelchair (05/14/2016 21:40:Latosha Guerrero RN) Admitted From: Home (05/14/2016 21:40:Latosha Guerrero RN) Reason for Induction: Not Applicable (05/14/2016 21:40:Latosha Guerrero RN) Records Available: Yes (05/14/2016 21:40:Latosha Guerrero RN) General Admission Information: Reviewed (05/14/2016 21:40:Latosha Guerrero RN) General Admission Reviewed By: Manpreet Ko RN (05/14/2016 21:40:Latosha Guerrero RN) BELONGINGS/ADVANCED DIRECTIVES Valuables/Personal Effects: Purse/Wallet; Cell Phone (05/14/2016 21:40:Latosha Guerrero RN) Other Belongings: see paper belongings form (05/14/2016 21:40:Latosha Guerrero RN) Advance Direct for Healthcare: No, and Wants No Information (05/14/2016 21:40:Latosha Guerrero RN) Durable Power of Pattern Developer: No (05/14/2016 21:40:Latosha Guerrero RN) Living Will: No (05/14/2016 21:40:Latosha Guerrero RN) Organ Donor: No (05/14/2016 21:40:Latosha Guerrero RN) Pt Rights Information Given: Yes (05/14/2016 21:40:Latosha Guerrero RN) Pt Understands Pt Rights: Yes (05/14/2016 21:40:Latosha Guerrero RN) Patient Rights Comments: patient access (05/10/2016 15:48:Kristyn Ko) LEARNING ASSESSMENT Knowledge Level: Understands L_D Process; Understands Care Activities; Had Pre-Hospital Education; Understands Diagnosis (05/14/2016 21:40:Latosha Guerrero RN) Barriers to Learning: None (05/14/2016 21:40:Latosha Guerrero RN) Learning Readiness: Motivated (05/14/2016 21:40:Latosha Guerrero RN) Learns Best By: 1 to 1 Instruction (05/14/2016 21:40:Latosha Guerrero RN) Learning Needs: Labor and Delivery Process; Pain Management; Symptoms to Report; Treatment Plan; Medication; Diagnosis; Nutrition; Equipment; Infant Care; Community Resources (05/14/2016 21:40:Latosha Guerrero RN) DOMESTIC VIOLANCE SCREENING Dom Viol Threatened/Hurt: No (05/14/2016 21:40:Latosha Guerrero RN) Hx of Abuse/Neglect past 2yrs: No (05/14/2016 21:40:Latosha Guerrero RN) Feel Unsafe Going Home: No (05/14/2016 21:40:Latosha Guerrero RN) Addt'l Observ Indicating Abuse: No (05/14/2016 21:40:Latosha Guerrero RN) Reason Unable to Complete Screen: N/A, Screen Completed (05/14/2016 21:40:Latosha Guerrero RN) Considered Personal Harm/Suicide: No (05/14/2016 21:40:Latosha Guerrero RN) NUTRITIONAL/FUNCTIONAL SCREENING Problem with Appetite >5 Days: No (05/14/2016 21:40:Latosha Guerrero RN) Chew/Swallow Difficulties: No (05/14/2016 21:40:Latosha Guerrero RN) Inappropriate Wt Gain/Loss: No (05/14/2016 21:40:Latosha Guerrero RN) Presence Skin Breakdown/Ulcer: No (05/14/2016 21:40:Latosha Guerrero RN) Special Diet: No (05/14/2016 21:40:Latosha Guerrero RN) Pt Requests Precision Instrument Maker Visit: No (05/14/2016 21:40:Latosha Guerrero RN) Hx of Any of the Following?: N/A (05/14/2016 21:40:Latosha Guerrero RN) New Diagnosis of: N/A (05/14/2016 21:40:Latosha Guerrero RN) Requires Assist w/Ambulation: No (05/14/2016 21:40:Latosha Guerrero RN) Uses Assist Device to Ambulate: No (05/14/2016 21:40:Latosha Guerrero RN) Pt Requires Help w/ADL's: No (05/14/2016 21:40:Latosha Guerrero RN)
--- NOTE | 2016-05-15 18:00 | L&D General Admission ---
General Admit Datetime Report Generated by CPN: 05/15/2016 18:00 INFORMATION Patient Age: 30 (03/15/2016 14:05:QS system process) EDC: 06/06/2016 00:00 (04/11/2016 17:58:Yasmin Swanson RN) : 4 (04/11/2016 17:58:Yasmin Swanson RN) Para: 3 (05/10/2016 16:33:Yasmin Swanson RN) Term: 2 (04/11/2016 17:58:Yasmin Swanson RN) : 1 (04/11/2016 17:58:Yasmin Swanson RN) Spontaneous Abortions: 0 (04/11/2016 17:58:Yasmin Swanson RN) Induced Abortions: 0 (04/11/2016 17:58:Yasmin Swanson RN) Livin (04/11/2016 17:58:Yasmin Swanson RN) Cesareans: 0 (04/11/2016 17:58:Yasmin Swanson RN) VBACs: 0 (04/11/2016 17:58:Yasmin Swanson RN) Ectopic: 0 (04/11/2016 17:58:Yasmin Swanson RN) Multiple Births: 0 (04/11/2016 17:58:Yasmin Swanson RN) Baby, Number in Womb: 1 (05/10/2016 16:33:Yasmin Swanson RN) CARE Primary Toe Sewer: [facility] (04/11/2016 17:58:Yasmin Swanson RN) Adequate Care: Yes (04/11/2016 17:58:Yasmin Swanson RN) Height (in): 63 (05/15/2016 01:32:QS system process) ALLERGIES Medication Allergy: Yes (04/11/2016 17:58:Yasmin Swanson RN) Medication Allergies: Penicillins/Anaphylaxis (05/06/2016); amoxicillin/SV/Anaphylaxis (05/06/2016) (05/06/2016 15:20:QS system process) Latex Allergy: No Latex Allergies (04/11/2016 17:58:Wilda Chavez RN) Food Allergies: denies (04/11/2016 17:58:Gayatri Crenshaw RN) Environmental Allergies: denies (04/11/2016 17:58:Gayatri Crenshaw RN) COMMUNICATION Primary Language: Greek (04/11/2016 17:58:Yasmin Swanson RN) Medical Tx Preferred Language: Greek (04/11/2016 17:58:Yasmin Swanson RN) Communication Barrier(s): None (04/11/2016 17:58:Yasmin Swanson RN) DEMOGRAPHICS Address: [address] [place] [id number] (03/15/2016 14:05:QS system process) Zipcode: [id number] (03/15/2016 14:05:QS system process) Home (03/15/2016 14:05:QS system process) N: [phone] (03/15/2016 14:05:QS system process) Next of Kin Name: JAMES CHUN (03/15/2016 14:05:QS system process) Next of Kin (03/15/2016 14:05:QS system process) Next of Kin Relationship: SPO (03/15/2016 14:05:QS system process) Date of : 1985 (03/15/2016 14:05:QS system process) Marital Status: (03/15/2016 14:05:QS system process) Sex: Female (03/15/2016 14:05:QS system process) Race: (03/15/2016 14:05:QS system process) Ethnicity: Non- or (03/15/2016 14:05:QS system process) Buddhist: Anglican (03/15/2016 14:05:QS system process) DRUG AND ALCOHOL USE Alcohol: No (04/11/2016 17:58:Wilda Chavez RN) Marijuana: No (04/11/2016 17:58:Wilda Chavez RN) Cocaine: No (04/11/2016 17:58:Wilda Chavez RN) Other Illicit Drugs: No (04/11/2016 17:58:Wilda Chavez RN) VACCINE HISTORY Influenza Vaccine: No (04/11/2016 17:58:Wilda Chavez RN) Pneumococcal Vaccine: No (04/11/2016 17:58:Wilda Chavez RN) Tetanus Vaccine: Yes (04/11/2016 17:58:Wilda Chavez RN) Tdap Vaccine: Yes (04/11/2016 17:58:Wilda Chavez RN) Hepatitis B Vaccine: Yes (04/11/2016 17:58:Wilda Chavez RN) Freight Rate Specialist: [facility] (04/11/2016 17:58:Maryanne Webster RN) Feeding Preference: Breast (04/11/2016 17:58:Maryanne Webster RN) Benefit of Breast Feed Discussed: Yes (04/11/2016 17:58:Maryanne Webster RN) Circumcision: N/A (04/11/2016 17:58:Maryanne Webster RN) Classes Attended: No (04/11/2016 17:58:Maryanne Webster RN) Tubal Ligation: Yes (04/11/2016 17:58:Maryanne Webster RN) Tubal Authorization Signed: Yes (04/11/2016 17:58:Maryanne Webster RN) Consent: N/A (04/11/2016 17:58:Maryanne Webster RN) Consent Signed: N/A (04/11/2016 17:58:Maryanne Webster RN) Pain Management Plans: None (04/11/2016 17:58:Kristyn Ko) Plans for Labor and Delivery: None (04/11/2016 17:58:Kristyn Ko) Support Person: james (04/11/2016 17:58:Kristyn Ko) Support Person Relationship: (04/11/2016 17:58:Kristyn Ko) Cultural/Spritual Practice: No (04/11/2016 17:58:Maryanne Webster RN) Spir/Cult Dietary Needs: No (04/11/2016 17:58:Maryanne Webster RN) LIVING SITUATION/DISCHARGE PLAN Living Arrangements: House (04/11/2016 17:58:Kristyn Ko) Adequate Access to:: Electric; Heat; Refrigeration; Plumbing/Running water; Phone; Transportation (04/11/2016 17:58:Kristyn Ko) WIC Program: Yes (04/11/2016 17:58:Kristyn Ko) Discharge Inventory And Pricing Associate Person: james (04/11/2016 17:58:Kristyn Ko) Currently Using Commun Resources: Yes (04/11/2016 17:58:Kristyn Ko) Specify Current Resource Used: mediciad (04/11/2016 17:58:Kristyn Ko) Car Seat for Discharge: Yes (04/11/2016 17:58:Wilda Chavez RN) Adoption Requested: No (04/11/2016 17:58:Maryanne Webster RN) Pt Contact w/infant Post : N/A (04/11/2016 17:58:Maryanne Webster RN) LABS Blood Type: O Negative (04/11/2016 17:58:Wilda Chavez RN) Antibody Screen: negative (04/11/2016 17:58:Wilda Chavez RN) Rho(G) this : Yes (04/11/2016 17:58:Maryanne Webster RN) Hemoglobin: 10.8 L (05/15/2016 06:33:QS system process) Hematocrit: 32.7 L (05/15/2016 06:33:QS system process) MCV: 84 (05/15/2016 06:33:QS system process) Group Beta Strep: negative (04/11/2016 17:58:Latosha Guerrero RN) RPR/VDRL: Nonreactive (04/11/2016 17:58:Wilda Chavez RN) HIV Exposure Test: Negative (04/11/2016 17:58:Wilda Chavez RN) Hepatitis B: Negative (04/11/2016 17:58:Wilda Chavez RN) Rubella: Immune (04/11/2016 17:58:Wilda Chavez RN) OB/PREVIOUS HISTORY History of Previous : No (04/11/2016 17:58:Maryanne Webster RN) History of Gestational Diabetes: No (04/11/2016 17:58:Maryanne Webster RN) History of PIH: No (04/11/2016 17:58:Maryanne Webster RN) History of Incompetent Cervix: No (04/11/2016 17:58:Maryanne Webster RN) History of Placenta Previa/Abrup: No (04/11/2016 17:58:Maryanne Webster RN) History of Macrosomia: No (04/11/2016 17:58:Maryanne Webster RN) History of IUGR: No (04/11/2016 17:58:Maryanne Webster RN) History of Hemorrhage: No (04/11/2016 17:58:Maryanne Webster RN) History of Loss/Stillborn: No (04/11/2016 17:58:Maryanne Webster RN) History of : No (04/11/2016 17:58:Maryanne Webster RN) History of D (Rh) Sensitization: No (04/11/2016 17:58:Maryanne Webster RN) History Recurrent Loss/Stillborn: No (04/11/2016 17:58:Maryanne Webster RN) History Depression/PP Depression: No (04/11/2016 17:58:Maryanne Webster RN) History of Uterine Anomaly/SAMUEL: No (04/11/2016 17:58:Maryanne Webster RN) History of Infertility: No (04/11/2016 17:58:Maryanne Webster RN) History of ART Treatment: No (04/11/2016 17:58:Maryanne Webster RN) History of SAMUEL: No (04/11/2016 17:58:Maryanne Webster RN) Comments Obstetrical History: G1- 2006 Del M 7lb 12oz at 39 weeks G2- 2007 Del F 7lb 10oz at 37 weeks G3- 2016 Del M 6lb 14oz at 35.6 weeks G4- current GHTN (04/11/2016 17:58:Maryanne Webster RN) MEDICAL HISTORY Med Hx Diabetes: No (04/11/2016 17:58:Maryanne Webster RN) Med Hx Hypertension: Yes (04/11/2016 17:58:Maryanne Webster RN) Med Hx Heart Disease: No (04/11/2016 17:58:Maryanne Webster RN) Med Hx Autoimmune Disorder: No (04/11/2016 17:58:Maryanne Webster RN) Med Hx Kidney Disease/UTI: No (04/11/2016 17:58:Maraynne Webster RN) Med Hx Neurologic/Epilepsy: No (04/11/2016 17:58:Maryanne Webster RN) Med Hx Psychiatric Disorders: No (04/11/2016 17:58:Maryanne Webster RN) Med Hx Hepatitis/Liver Disease: No (04/11/2016 17:58:Maryanne Webster RN) Med Hx Varicosities/Phlebitis: No (04/11/2016 17:58:Maryanne Webster RN) Med Hx Thyroid Dysfunction: No (04/11/2016 17:58:Maryanne Webster RN) Med Hx Trauma/Violence: No (04/11/2016 17:58:Maryanne Webster RN) Med Hx Blood Transfusion: No (04/11/2016 17:58:Maryanne Webster RN) Med Hx Pulmonary (Asthma,TB): No (04/11/2016 17:58:Maryanne Webster RN) Med Hx Breast: No (04/11/2016 17:58:Maryanne Webster RN) Med Hx TERRAZZO FINISHER HELPER Surgery: No (04/11/2016 17:58:Maryanne Webster RN) Med Hx Hospitalization/Surgery: No (04/11/2016 17:58:Maryanne Webster RN) Med Hx Anesthetic Complications: No (04/11/2016 17:58:Maryanne Webster RN) Med Hx Abnormal Pap Smear: No (04/11/2016 17:58:Maryanne Webster RN) Other Medical Diseases: No (04/11/2016 17:58:Maryanne Webster RN) Med Hx Significant Family Hx: No (04/11/2016 17:58:Marynane Webster RN) Details of Med/Surg Hx: Questionable CHTN (04/11/2016 17:58:Maryanne Webster RN) INFECTIOUS HISTORY Inf Hx Gonorrhea: No (04/11/2016 17:58:Maryanne Webster RN) Inf Hx Chlamydia: No (04/11/2016 17:58:Maryanne Webster RN) Inf Hx Syphilis: No (04/11/2016 17:58:Maryanne Webster RN) Inf Hx HIV/AIDS: No (04/11/2016 17:58:Maryanne Webster RN) Inf Hx Human Papilloma Virus: No (04/11/2016 17:58:Maryanne Webster RN) Inf Hx Pt/Partner Genital Herpes: No (04/11/2016 17:58:Maryanne Webster RN) Inf Hx Tuberculosis/Exposure: No (04/11/2016 17:58:Maryanne Webster RN) Inf Hx Hepatitis B,C: No (04/11/2016 17:58:Maryanne Webster RN) Inf Hx Rash or Viral Illness: No (04/11/2016 17:58:Maryanne Webster RN) GENETIC HISTORY Gen Hx Age >=35 at CHAPO: No (04/11/2016 17:58:Maryanne Webster RN) Gen Hx Thalassemia: No (04/11/2016 17:58:Maryanne Webster RN) Gen Hx Congenital Heart Defect: No (04/11/2016 17:58:Maryanne Webster RN) Gen Hx Neural Tube Defect: No (04/11/2016 17:58:Maryanne Webster RN) Gen Hx Down's Syndrome: No (04/11/2016 17:58:Maryanne Webster RN) Gen Hx Chad-Sachs: No (04/11/2016 17:58:Maryanne Webster RN) Gen Hx Lucie: No (04/11/2016 17:58:Maryanne Webster RN) Gen Hx Familial Dysautonomia: No (04/11/2016 17:58:Maryanne Webster RN) Gen Hx Sickle Cell Disease/Trait: No (04/11/2016 17:58:Maryanne Webster RN) Gen Hx Hemophilia/Blood Disorder: No (04/11/2016 17:58:Maryanne Webster RN) Gen Hx Muscular Dystrophy: No (04/11/2016 17:58:Maryanne Webster RN) Gen Hx Cystic Fibrosis: No (04/11/2016 17:58:Maryanne Webster RN) Gen Hx Huntingtons Chorea: No (04/11/2016 17:58:Maryanne Webster RN) Gen Hx Mental Retardation/Autism: No (04/11/2016 17:58:Maryanne Webster RN) Gen Hx Tested for Fragile X: No (04/11/2016 17:58:Maryanne Webster RN) Gen Hx Other Inher/Chromosomal: No (04/11/2016 17:58:Maryanne Webster RN) Gen Hx Maternal Metabolic DO: No (04/11/2016 17:58:Maryanne Webster RN) Gen Hx Pt Father or FOB Defect: No (04/11/2016 17:58:Maryanne Webster RN) Gen Hx Other Genetic History: No (04/11/2016 17:58:Maryanne Webster RN) Gen Hx Drugs/Meds since LMP: No (04/11/2016 17:58:Maryanne Webster RN)
--- NOTE | 2016-05-15 18:15 | L&D Care Plan ---
LD CARE PLANS Datetime Report Generated by CPN: 05/15/2016 18:15 Datetime: 05/14/2016 21:50 State: Risk For (Kristyn Ko) Related To: Labor and Delivery Process (Kristyn Ko) Goal(s): Patients Pain will be Assessed and Managed; Patient will Verbalize Adequate Relief of Pain or the Ability to [place] with Current Pain (Kristyn Ko) Interventions: Assess Pain Severity on Scale of 0 (None) to 5 (Severe); Assess Type, Location and Intensity of Pain Each Time Client Reports Discomfort and Notify Provider if Unusal Pain Develops; Encourage Proper Breathing and Relaxation Techniques; Offer Alternatives Such as Repositioning, Calm Environment, Massages, Diversional Activities, Ice Pack, Splinting, and Ambulation; Administer Analgesics as Ordered; Assist with Epidural Placement as Appropriate; Evaluate Therapeutic Effectiveness of Medication and Treatments (Kristyn Ko) Outcome: Patient will Report Absence or Relief of Pain Consistent with Established Pain Goal (Kristyn Ko) Status: Ongoing (Kristyn Ko) Outcome: Patient will have a Decrease in Signs and Symptoms of Discomfort (Kristyn Ko) Status: Ongoing (Kristyn Ko) Outcome: Pain will be Controlled During Procedures (Kristyn Ko) Status: Ongoing (Kristyn Ko) State: Risk For (Kristyn Ko) Related To: Labor and Delivery Process (Kristyn Ko) Goal(s): Patient will have Decreased Anxiety and be able to Function at Acceptable Levels (Kristyn Ko) Interventions: Assess Verbal and Nonverbal Behavioral Indicators of Anxiety; Assist Patient to Identify and Verbalize Symptoms of Anxiety; Identify and Demonstrate Techniques to Control Anxiety; Assist Patient with Coping Mechanisms to Manage Anxiety; Provide Theraputic Touch for the Patient; Explain to Patient, Using a Calm Reassuring Approach and Nonmedical Terms, All Activities, Procedures, and Concerns; Instruct Patient and Family about Post Discharge Care, Limitations, Symptoms to Report and Resources Available (Kristyn Ko) Outcome: Patient will Identify, Verbalize and Demonstrate Techniques to Control Anxiety (Kristyn Ko) Status: Ongoing (Kristyn Ko) Outcome: Patient's Posture, Facial Expressions, Gestures and Activity Level will Reflect Decreased Anxiety (Kristyn Ko) Status: Ongoing (Kristyn Ko) Outcome: Patient will Verbalize a Sense of Control and/or Acceptance of the Situation (Kristyn Ko) Status: Ongoing (Kristyn Ko) Outcome: Patient will Identify and Utilize Support Person (Kristyn Ko) Status: Ongoing (Kristyn Ko)
[2016-05-16] MEDS: IBUPROFEN 800 MG TABLET PO SCH ×2 (05:00→14:37)
--- NOTE | 2016-05-16 06:00 | L&D General Admission ---
General Admit Datetime Report Generated by CPN: 05/16/2016 06:00 INFORMATION Patient Age: 30 (03/15/2016 14:05:QS system process) EDC: 06/06/2016 00:00 (04/11/2016 17:58:Yasmin Swanson RN) : 4 (04/11/2016 17:58:Yasmin Swanson RN) Para: 3 (05/10/2016 16:33:Yasmin Swanson RN) Term: 2 (04/11/2016 17:58:Yasmin Swanson RN) : 1 (04/11/2016 17:58:Yasmin Swanson RN) Spontaneous Abortions: 0 (04/11/2016 17:58:Yasmin Swanson RN) Induced Abortions: 0 (04/11/2016 17:58:Yasmin Swanson RN) Livin (04/11/2016 17:58:Yasmin Swanson RN) Cesareans: 0 (04/11/2016 17:58:Yasmin Swanson RN) VBACs: 0 (04/11/2016 17:58:Yasmin Swanson RN) Ectopic: 0 (04/11/2016 17:58:Yasmin Swanson RN) Multiple Births: 0 (04/11/2016 17:58:Yasmin Swanson RN) Baby, Number in Womb: 1 (05/10/2016 16:33:Yasmin Swanson RN) CARE Primary Pattern Grader Supervisor: [facility] (04/11/2016 17:58:Yasmin Swanson RN) Adequate Care: Yes (04/11/2016 17:58:Yasmin Swanson RN) Height (in): 63 (05/15/2016 01:32:QS system process) ALLERGIES Medication Allergy: Yes (04/11/2016 17:58:Yasmin Swanson RN) Medication Allergies: Penicillins/Anaphylaxis (05/06/2016); amoxicillin/SV/Anaphylaxis (05/06/2016) (05/06/2016 15:20:QS system process) Latex Allergy: No Latex Allergies (04/11/2016 17:58:Wilda Chavez RN) Food Allergies: denies (04/11/2016 17:58:Gayatri Crenshaw RN) Environmental Allergies: denies (04/11/2016 17:58:Gayatri Crenshaw RN) COMMUNICATION Primary Language: Tamazight (04/11/2016 17:58:Yasmin Swanson RN) Medical Tx Preferred Language: Tamazight (04/11/2016 17:58:Yasmin Swanson RN) Communication Barrier(s): None (04/11/2016 17:58:Yasmin Swanson RN) DEMOGRAPHICS Address: [address] [place] [id number] (03/15/2016 14:05:QS system process) Zipcode: [address] (03/15/2016 14:05:QS system process) Home (03/15/2016 14:05:QS system process) N: [id number] (03/15/2016 14:05:QS system process) Next of Kin Name: JAMES CHUN (03/15/2016 14:05:QS system process) Next of Kin (03/15/2016 14:05:QS system process) Next of Kin Relationship: SPO (03/15/2016 14:05:QS system process) Date of : 1985 (03/15/2016 14:05:QS system process) Marital Status: (03/15/2016 14:05:QS system process) Sex: Female (03/15/2016 14:05:QS system process) Race: (03/15/2016 14:05:QS system process) Ethnicity: Non- or (03/15/2016 14:05:QS system process) Nondenominational: Anglican (03/15/2016 14:05:QS system process) DRUG AND ALCOHOL USE Alcohol: No (04/11/2016 17:58:Wilda Chavez RN) Marijuana: No (04/11/2016 17:58:Wilda Chavez RN) Cocaine: No (04/11/2016 17:58:iWlda Chavez RN) Other Illicit Drugs: No (04/11/2016 17:58:Wilda Chavez RN) VACCINE HISTORY Influenza Vaccine: No (04/11/2016 17:58:Wilda Chavez RN) Pneumococcal Vaccine: No (04/11/2016 17:58:Wilda Chavez RN) Tetanus Vaccine: Yes (04/11/2016 17:58:Wilda Chavez RN) Tdap Vaccine: Yes (04/11/2016 17:58:Wilda Chavez RN) Hepatitis B Vaccine: Yes (04/11/2016 17:58:Wilda Chavez RN) Religious Activities Director: [facility] (04/11/2016 17:58:Maryanne Webster RN) Feeding Preference: Breast (04/11/2016 17:58:Maryanne Webster RN) Benefit of Breast Feed Discussed: Yes (04/11/2016 17:58:Maryanne Webster RN) Circumcision: N/A (04/11/2016 17:58:Maryanne Webster RN) Classes Attended: No (04/11/2016 17:58:Maryanne Webster RN) Tubal Ligation: Yes (04/11/2016 17:58:Maryanne Webster RN) Tubal Authorization Signed: Yes (04/11/2016 17:58:Maryanne Webster RN) Consent: N/A (04/11/2016 17:58:Maryanne Webster RN) Consent Signed: N/A (04/11/2016 17:58:Maryanne Webster RN) Pain Management Plans: None (04/11/2016 17:58:Kristyn Ko) Plans for Labor and Delivery: None (04/11/2016 17:58:Kristyn Ko) Support Person: james (04/11/2016 17:58:Kristyn Ko) Support Person Relationship: (04/11/2016 17:58:Kristyn Ko) Cultural/Spritual Practice: No (04/11/2016 17:58:Maryanne Webster RN) Spir/Cult Dietary Needs: No (04/11/2016 17:58:Maryanne Webster RN) LIVING SITUATION/DISCHARGE PLAN Living Arrangements: House (04/11/2016 17:58:Kristyn Ko) Adequate Access to:: Electric; Heat; Refrigeration; Plumbing/Running water; Phone; Transportation (04/11/2016 17:58:Kristyn Ko) WIC Program: Yes (04/11/2016 17:58:Kristyn Ko) Discharge Lehr Operator Person: james (04/11/2016 17:58:Kristyn Ko) Currently Using Commun Resources: Yes (04/11/2016 17:58:Kristyn Ko) Specify Current Resource Used: mediciad (04/11/2016 17:58:Kristyn Ko) Car Seat for Discharge: Yes (04/11/2016 17:58:Wilda Chavez RN) Adoption Requested: No (04/11/2016 17:58:Maryanne Webster RN) Pt Contact w/infant Post : N/A (04/11/2016 17:58:Maryanne Webster RN) LABS Blood Type: O Negative (04/11/2016 17:58:Wilda Chavez RN) Antibody Screen: negative (04/11/2016 17:58:Wilda Chavez RN) Rho(G) this : Yes (04/11/2016 17:58:Maryanne Webster RN) Hemoglobin: 10.8 L (05/15/2016 06:33:QS system process) Hematocrit: 32.7 L (05/15/2016 06:33:QS system process) MCV: 84 (05/15/2016 06:33:QS system process) Group Beta Strep: negative (04/11/2016 17:58:Latosha Guerrero RN) RPR/VDRL: Nonreactive (04/11/2016 17:58:Wilda Chavez RN) HIV Exposure Test: Negative (04/11/2016 17:58:Wilda Chavez RN) Hepatitis B: Negative (04/11/2016 17:58:Wilda Chavze RN) Rubella: Immune (04/11/2016 17:58:Wilda Chavez RN) OB/PREVIOUS HISTORY History of Previous : No (04/11/2016 17:58:Maryanne Webster RN) History of Gestational Diabetes: No (04/11/2016 17:58:Maryanne Webster RN) History of PIH: No (04/11/2016 17:58:Maryanne Webster RN) History of Incompetent Cervix: No (04/11/2016 17:58:Maryanne Webster RN) History of Placenta Previa/Abrup: No (04/11/2016 17:58:Maryanne Webster RN) History of Macrosomia: No (04/11/2016 17:58:Maryanne Webster RN) History of IUGR: No (04/11/2016 17:58:Maryanne Webster RN) History of Hemorrhage: No (04/11/2016 17:58:Maryanne Webster RN) History of Loss/Stillborn: No (04/11/2016 17:58:Maryanne Webster RN) History of : No (04/11/2016 17:58:Maryanne Webster RN) History of D (Rh) Sensitization: No (04/11/2016 17:58:Maryanne Webster RN) History Recurrent Loss/Stillborn: No (04/11/2016 17:58:Maryanne Webster RN) History Depression/PP Depression: No (04/11/2016 17:58:Maryanne Webster RN) History of Uterine Anomaly/SAMUEL: No (04/11/2016 17:58:Maryanne Webster RN) History of Infertility: No (04/11/2016 17:58:Maryanne Webster RN) History of ART Treatment: No (04/11/2016 17:58:Maryanne Webster RN) History of SAMUEL: No (04/11/2016 17:58:Maryanne Webster RN) Comments Obstetrical History: G1- 2006 Del M 7lb 12oz at 39 weeks G2- 2007 Del F 7lb 10oz at 37 weeks G3- 2016 Del M 6lb 14oz at 35.6 weeks G4- current GHTN (04/11/2016 17:58:Maryanne Webster RN) MEDICAL HISTORY Med Hx Diabetes: No (04/11/2016 17:58:Maryanne Webster RN) Med Hx Hypertension: Yes (04/11/2016 17:58:Maryanne Webster RN) Med Hx Heart Disease: No (04/11/2016 17:58:Maryanne Webster RN) Med Hx Autoimmune Disorder: No (04/11/2016 17:58:Maryanne Webster RN) Med Hx Kidney Disease/UTI: No (04/11/2016 17:58:Maryanne Webster RN) Med Hx Neurologic/Epilepsy: No (04/11/2016 17:58:Maryanne Webster RN) Med Hx Psychiatric Disorders: No (04/11/2016 17:58:Maryanne Webster RN) Med Hx Hepatitis/Liver Disease: No (04/11/2016 17:58:Maryanne Webster RN) Med Hx Varicosities/Phlebitis: No (04/11/2016 17:58:Maryanne Webster RN) Med Hx Thyroid Dysfunction: No (04/11/2016 17:58:Maryanne Webster RN) Med Hx Trauma/Violence: No (04/11/2016 17:58:Maryanne Webster RN) Med Hx Blood Transfusion: No (04/11/2016 17:58:Maryanne Webster RN) Med Hx Pulmonary (Asthma,TB): No (04/11/2016 17:58:Maryanne Webster RN) Med Hx Breast: No (04/11/2016 17:58:Maryanne Webster RN) Med Hx RENTAL CAR DELIVERER Surgery: No (04/11/2016 17:58:Maryanne Webster RN) Med Hx Hospitalization/Surgery: No (04/11/2016 17:58:Maryanne Webster RN) Med Hx Anesthetic Complications: No (04/11/2016 17:58:Maryanne Webster RN) Med Hx Abnormal Pap Smear: No (04/11/2016 17:58:Maryanne Webster RN) Other Medical Diseases: No (04/11/2016 17:58:Maryanne Webster RN) Med Hx Significant Family Hx: No (04/11/2016 17:58:Maryanne Webster RN) Details of Med/Surg Hx: Questionable CHTN (04/11/2016 17:58:Maryanne Webster RN) INFECTIOUS HISTORY Inf Hx Gonorrhea: No (04/11/2016 17:58:Maryanne Webster RN) Inf Hx Chlamydia: No (04/11/2016 17:58:Maryanne Webster RN) Inf Hx Syphilis: No (04/11/2016 17:58:Maryanne Webster RN) Inf Hx HIV/AIDS: No (04/11/2016 17:58:Maryanne Webster RN) Inf Hx Human Papilloma Virus: No (04/11/2016 17:58:Maryanne Webster RN) Inf Hx Pt/Partner Genital Herpes: No (04/11/2016 17:58:Maryanne Webster RN) Inf Hx Tuberculosis/Exposure: No (04/11/2016 17:58:Maryanne Webster RN) Inf Hx Hepatitis B,C: No (04/11/2016 17:58:Maryanne Webster RN) Inf Hx Rash or Viral Illness: No (04/11/2016 17:58:Maryanne Webster RN) GENETIC HISTORY Gen Hx Age >=35 at CHAPO: No (04/11/2016 17:58:Maryanne Webster RN) Gen Hx Thalassemia: No (04/11/2016 17:58:Maryanne Webster RN) Gen Hx Congenital Heart Defect: No (04/11/2016 17:58:Maryanne Webster RN) Gen Hx Neural Tube Defect: No (04/11/2016 17:58:Maryanne Webster RN) Gen Hx Down's Syndrome: No (04/11/2016 17:58:Maryanne Webster RN) Gen Hx Chad-Sachs: No (04/11/2016 17:58:Maryanne Webster RN) Gen Hx Lucie: No (04/11/2016 17:58:Maryanne Webster RN) Gen Hx Familial Dysautonomia: No (04/11/2016 17:58:Maryanne Webster RN) Gen Hx Sickle Cell Disease/Trait: No (04/11/2016 17:58:Maryanne Webster RN) Gen Hx Hemophilia/Blood Disorder: No (04/11/2016 17:58:Maryanne Webster RN) Gen Hx Muscular Dystrophy: No (04/11/2016 17:58:Maryanne Webster RN) Gen Hx Cystic Fibrosis: No (04/11/2016 17:58:Maryanne Webster RN) Gen Hx [place] Chorea: No (04/11/2016 17:58:Maryanne Webster RN) Gen Hx Mental Retardation/Autism: No (04/11/2016 17:58:Maryanne Webster RN) Gen Hx Tested for Fragile X: No (04/11/2016 17:58:Maryanne Webster RN) Gen Hx Other Inher/Chromosomal: No (04/11/2016 17:58:Maryanne Webster RN) Gen Hx Maternal Metabolic DO: No (04/11/2016 17:58:Maryanne Webster RN) Gen Hx Pt Father or FOB Defect: No (04/11/2016 17:58:Maryanne Webster RN) Gen Hx Other Genetic History: No (04/11/2016 17:58:Maryanne Webster RN) Gen Hx Drugs/Meds since LMP: No (04/11/2016 17:58:Maryanne Webster RN)
--- NOTE | 2016-05-16 06:00 | L&D Current Admission ---
Current Admit Datetime Report Generated by CPN: 05/16/2016 06:00 ADMISSION INFORMATION Current Admit Date/Time: 05/14/2016 22:25 (05/14/2016 21:40:Latosha Guerrero RN) Reason for Admission: Onset of Labor (05/14/2016 21:40:Latosha Guerrero RN) Chief Complaint: Contractions; Suspected Rupture of Membranes (05/14/2016 21:40:Kristyn Ko) EGA per Dates: 36.5 (05/14/2016 21:40:QS system process) Method of Arrival: Wheelchair (05/14/2016 21:40:Latosha Guerrero RN) Admitted From: Home (05/14/2016 21:40:Latosha Guerrero RN) Reason for Induction: Not Applicable (05/14/2016 21:40:Latosha Guerrero RN) Records Available: Yes (05/14/2016 21:40:Latosha Guerrero RN) General Admission Information: Reviewed (05/14/2016 21:40:Latosha Guerrero RN) General Admission Reviewed By: Manpreet Ko RN (05/14/2016 21:40:Latosha Guerrero RN) BELONGINGS/ADVANCED DIRECTIVES Valuables/Personal Effects: Purse/Wallet; Cell Phone (05/14/2016 21:40:Latosha Guerrero RN) Other Belongings: see paper belongings form (05/14/2016 21:40:Latosha Guerrero RN) Advance Direct for Healthcare: No, and Wants No Information (05/14/2016 21:40:Latosha Guerrero RN) Durable Power of Billiard Table Repairer: No (05/14/2016 21:40:Latosha Guerrero RN) Living Will: No (05/14/2016 21:40:Latosha Guerrero RN) Organ Donor: No (05/14/2016 21:40:Latosha Guerrero RN) Pt Rights Information Given: Yes (05/14/2016 21:40:Latosha Guerrero RN) Pt Understands Pt Rights: Yes (05/14/2016 21:40:Latosha Guerrero RN) Patient Rights Comments: patient access (05/10/2016 15:48:Kristyn Ko) LEARNING ASSESSMENT Knowledge Level: Understands L_D Process; Understands Care Activities; Had Pre-Hospital Education; Understands Diagnosis (05/14/2016 21:40:Latosha Guerrero RN) Barriers to Learning: None (05/14/2016 21:40:Latosha Guerrero RN) Learning Readiness: Motivated (05/14/2016 21:40:Latosha Guerrero RN) Learns Best By: 1 to 1 Instruction (05/14/2016 21:40:Latosha Guerrero RN) Learning Needs: Labor and Delivery Process; Pain Management; Symptoms to Report; Treatment Plan; Medication; Diagnosis; Nutrition; Equipment; Infant Care; Community Resources (05/14/2016 21:40:Latosha Guerrero RN) DOMESTIC VIOLANCE SCREENING Dom Viol Threatened/Hurt: No (05/14/2016 21:40:Latosha Guerrero RN) Hx of Abuse/Neglect past 2yrs: No (05/14/2016 21:40:Latosha Guerrero RN) Feel Unsafe Going Home: No (05/14/2016 21:40:Latosha Guerrero RN) Addt'l Observ Indicating Abuse: No (05/14/2016 21:40:Latosha Guerrero RN) Reason Unable to Complete Screen: N/A, Screen Completed (05/14/2016 21:40:Latosha Guerrero RN) Considered Personal Harm/Suicide: No (05/14/2016 21:40:Latosha Guerrero RN) NUTRITIONAL/FUNCTIONAL SCREENING Problem with Appetite >5 Days: No (05/14/2016 21:40:Latosha Guerrero RN) Chew/Swallow Difficulties: No (05/14/2016 21:40:Latosha Guerrero RN) Inappropriate Wt Gain/Loss: No (05/14/2016 21:40:Latosha Guerrero RN) Presence Skin Breakdown/Ulcer: No (05/14/2016 21:40:Latosha Guerrero RN) Special Diet: No (05/14/2016 21:40:Latosha Guerrero RN) Pt Requests Digester Operator Visit: No (05/14/2016 21:40:Latosha Guerrero RN) Hx of Any of the Following?: N/A (05/14/2016 21:40:Latosha Guerrero RN) New Diagnosis of: N/A (05/14/2016 21:40:Latosha Guerrero RN) Requires Assist w/Ambulation: No (05/14/2016 21:40:Latosha Guerrero RN) Uses Assist Device to Ambulate: No (05/14/2016 21:40:Latosha Guerrero RN) Pt Requires Help w/ADL's: No (05/14/2016 21:40:Laotsha Guerrero RN)
--- NOTE | 2016-05-16 06:15 | L&D Care Plan ---
LD CARE PLANS Datetime Report Generated by CPValerie: 05/16/2016 06:15 Datetime: 05/14/2016 21:50 State: Risk For (Kristyn Ko) Related To: Labor and Delivery Process (Kristyn Ko) Goal(s): Patients Pain will be Assessed and Managed; Patient will Verbalize Adequate Relief of Pain or the Ability to [place] with Current Pain (Kristyn Ko) Interventions: Assess Pain Severity on Scale of 0 (None) to 5 (Severe); Assess Type, Location and Intensity of Pain Each Time Client Reports Discomfort and Notify Provider if Unusal Pain Develops; Encourage Proper Breathing and Relaxation Techniques; Offer Alternatives Such as Repositioning, Calm Environment, Massages, Diversional Activities, Ice Pack, Splinting, and Ambulation; Administer Analgesics as Ordered; Assist with Epidural Placement as Appropriate; Evaluate Therapeutic Effectiveness of Medication and Treatments (Kristyn Ko) Outcome: Patient will Report Absence or Relief of Pain Consistent with Established Pain Goal (Kristyn Ko) Status: Ongoing (Kristyn Ko) Outcome: Patient will have a Decrease in Signs and Symptoms of Discomfort (Kristyn Ko) Status: Ongoing (Kristyn Ko) Outcome: Pain will be Controlled During Procedures (Kristyn Ko) Status: Ongoing (Kristyn Ko) State: Risk For (Kristyn Ko) Related To: Labor and Delivery Process (Kristyn Ko) Goal(s): Patient will have Decreased Anxiety and be able to Function at Acceptable Levels (Kristyn Ko) Interventions: Assess Verbal and Nonverbal Behavioral Indicators of Anxiety; Assist Patient to Identify and Verbalize Symptoms of Anxiety; Identify and Demonstrate Techniques to Control Anxiety; Assist Patient with Coping Mechanisms to Manage Anxiety; Provide Theraputic Touch for the Patient; Explain to Patient, Using a Calm Reassuring Approach and Nonmedical Terms, All Activities, Procedures, and Concerns; Instruct Patient and Family about Post Discharge Care, Limitations, Symptoms to Report and Resources Available (Kristyn Ko) Outcome: Patient will Identify, Verbalize and Demonstrate Techniques to Control Anxiety (Kristyn Ko) Status: Ongoing (Kristyn Ko) Outcome: Patient's Posture, Facial Expressions, Gestures and Activity Level will Reflect Decreased Anxiety (Kristyn Ko) Status: Ongoing (Kristyn Ko) Outcome: Patient will Verbalize a Sense of Control and/or Acceptance of the Situation (Kristyn Ko) Status: Ongoing (Kristyn Ko) Outcome: Patient will Identify and Utilize Support Person (Kristyn Ko) Status: Ongoing (Kristyn Ko)
[2016-05-16 07:27] LABS: HEMATOCRIT 33.9 % (36.0-47.0); HEMOGLOBIN 11.1 g/dL (12.0-15.5); HGB HCT DIFFERENCE -0.6; MEAN CORPUSCULAR HEMOGLOBIN 27.6 pg (27.0-33.4); MEAN CORPUSCULAR HGB CONC 32.8 g/dL (32.0-36.0); MEAN CORPUSCULAR VOLUME 84 fl (80-97); RED BLOOD COUNT 4.02 10^6/uL (3.72-5.28); RED CELL DISTRIBUTION WIDTH 13.9 % (11.5-14.0); WHITE BLOOD COUNT 12.3 10^3/uL (4.0-10.5)
[2016-05-16] MEDS: SENNOSIDES/DOCUSATE 8.6-50 MG 1 EACH TABLET PO SCH (09:58)
[2016-05-16] MEDS: FERROUS SULFATE 325 MG TABLET PO SCH ×2 (09:58→17:40)
[2016-05-16] MEDS: PRENATAL VITAMIN W-O CA NO5/FE FUMARATE/FA CAPSULE PO SCH (09:59)
[2016-05-16] MEDS: DOCUSATE SODIUM 100 MG CAPSULE PO SCH ×2 (09:59→17:40)
--- NOTE | 2016-05-16 12:51 | PDOC DISCHARGE SUMMARY ---
Final Diagnosis Discharge Date: 05/16/16 - Final Diagnosis (1) Chronic hypertension affecting Is this a current diagnosis for this admission?: Yes (2) delivery Is this a current diagnosis for this admission?: Yes Discharge Data - Discharge Medication Home Medications: [id number]/FA/Omega3/Dha/Fish Oil [ Gummies] 1 each PO DAILY 03/03/15 Calcium Carbonate [Tums Chewable 500 mg Tab.chew] 500 mg PO DAILY 05/09/16 Acetaminophen [Tylenol] 1 tab PO DAILY 05/10/16 Butalb/Acetaminophen/Caffeine [Fioricet (50-325-40 mg) Tablet] 1 tab PO DAILY Dextroamphetamine/Amphetamine [Adderall 15 mg Tablet] 1 tab PO DAILY 05/15/16 Ibuprofen [Motrin 800 mg Tablet] 800 mg PO Q8HP PRN #90 tablet 05/16/16 Reason(s) for Admission: Onset of Labor, Labor Procedures: NST, Ultrasound Intrapartum Procedure(s): Spontaneous Vaginal Delivery - [place] Data Baby 1 Female at 1 minute: 8 at 5 minutes: 9 Weight: 3406 kg Home with Mother: Yes Complications: No - Diagnosis Test Laboratory: Temp Pulse Resp BP Pulse Ox 98.2 F 76 16 115/70 100 05/16/16 08:21 05/16/16 08:21 05/16/16 08:21 05/16/16 08:21 05/16/16 08:21 05/14/16 05/15/16 05/15/16 21:57 01:10 06:33 RBC 4.21 3.88 Hgb 11.6 L 10.8 L Hct 35.0 L 32.7 L Urine Opiates Screen NEGATIVE 05/16/16 07:04 RBC 4.02 Hgb 11.1 L Hct 33.9 L Urine Opiates Screen - Discharge information/Instructions Discharge Activity: Balance Activity w/Rest, No Lifting Over 10 Pounds, No Lifting/Push/Pulling, Pelvic Rest, Slowly Increase Activity, No tub bath Discharge Diet: Regular Disposition: HOME, SELF-CARE Follow up with: [facility] in: 1, Weeks - blood pressure check Physical Exam (OB) Vital Signs: Temp Pulse Resp BP Pulse Ox 98.2 F 76 16 115/70 100 05/16/16 08:21 05/16/16 08:21 05/16/16 08:21 05/16/16 08:21 05/16/16 08:21 Intake & Output 05/15/16 05/16/16 05/17/16 06:59 06:59 06:59 Weight 103.6 kg - General General Appearance: Appears well In distress: None - PIH/Pre-Eclampsia DTR's: 1 + Clonus: Negative Headache: Absent Epigastric Pain: No Visual Changes: No - Episiotomy/Laceration Site Condition: N/A - Lochia Lochia Amount: Scant < 10 ml Lochia Color: Rubra/Red - Abdomen Description: Soft Hernia Present: No Flatus Presence: Present Fundal Description: Firm, Midline Fundal Height: u/u - u/2 - Respiratory Respiratory Status: No respiratory distress - Extremities Upper extremity: Normal inspection Lower extremities: Normal inspection - Neurological Cognition: Normal Orientation: AAOx4 - Psychological Associated symptoms: Normal affect, Normal mood - bonding well with baby. Helpful family at bedside
[2016-05-16 17:35] VITALS: BP 128/61
== END 2016-05-16 19:45 | disposition home or self-care (01) | DRG 775 ==
LOC: LC 21:22 → LR 21:42 → 2S 05-15 00:50
PROVIDERS: ADMIT Obstetrics & Gynecology; ATTEND Obstetrics & Gynecology
PROC: 10E0XZZ Delivery of Products of Conception, External Approach (ICD-10-PCS; principal; 2016-05-14)
PROC: 10907ZC Drainage of Amniotic Fluid, Therapeutic from Products of Conception, Via Natural or Artificial Opening (ICD-10-PCS; 2016-05-14)
PROC: 4A1HXCZ Monitoring of Products of Conception, Cardiac Rate, External Approach (ICD-10-PCS; 2016-05-14)
DX: O60.14X0 Preterm labor third trimester with preterm delivery third trimester, not applicable or unspecified (principal); O13.4 Gestational [pregnancy-induced] hypertension without significant proteinuria, complicating childbirth; O62.3 Precipitate labor; Z28.21 Immunization not carried out because of patient refusal; Z88.0 Allergy status to penicillin; Z88.1 Allergy status to other antibiotic agents; Z3A.36 36 weeks gestation of pregnancy; Z37.0 Single live birth
CPT/HCPCS: 36415; 80307; 81005; 85025; 85027; 86592; 86850; 86870; 86900; 86901; J2590; J3490